=== PATIENT | female | born 1955 | race Caucasian/White ===

== ENCOUNTER → 2016-11-02 | Outpatient (CLI) | payer BC ==
--- NOTE | 2016-11-05 08:33 | MM ---
Reason for exam: screening (asymptomatic). Last mammogram was performed 1 year and 11 months ago. History: Patient is postmenopausal. Physical Findings: A clinical breast exam by your physician is recommended on an annual basis and results should be correlated with mammographic findings. MG Screening Mammo w CAD Bilateral CC and MLO view(s) were taken. Prior study comparison: December 01, 2014, mammogram, performed at [facility]. April 10, 2013, mammogram, performed at [facility]. There are scattered fibroglandular densities. Finding: There area few typically benign round, diffuse calcifications in both breasts. Asymmetric breast tissue in the right outer breast, stable. ASSESSMENT: Benign, BI-RAD 2 RECOMMENDATION: Routine screening mammogram of both breasts in 1 year.
== END | disposition home or self-care (01) ==
LOC: RADMAMWWP 11:12
PROVIDERS: ATTEND Obstetrics & Gynecology
DX: Z12.31 Encounter for screening mammogram for malignant neoplasm of breast (principal)

== ENCOUNTER → 2018-01-01 | Outpatient (CLI) | payer BC ==
--- NOTE | 2018-01-02 10:12 | MM ---
Reason for exam: screening (asymptomatic). Last mammogram was performed 1 year and 2 months ago. History: Patient is postmenopausal. Physical Findings: A clinical breast exam by your physician is recommended on an annual basis and results should be correlated with mammographic findings. MG Screening Mammo w CAD Bilateral CC and MLO view(s) were taken. Prior study comparison: November 02, 2016, bilateral MG screening mammo w CAD. December 01, 2014, mammogram, performed at [facility]. There are scattered fibroglandular densities. Focal asymmetry inner upper right breast 4.2cm from nipple. ASSESSMENT: Incomplete: need additional imaging evaluation, BI-RAD 0 RECOMMENDATION: Special view mammogram of the right breast. If lesion persists on supplemental views, image directed ultrasound is recommended. [facility] will attempt to contact patient to return for supplemental views and ultrasound if indicated.
== END | disposition home or self-care (01) ==
LOC: RADMAMWWP 11:41
PROVIDERS: ATTEND Obstetrics & Gynecology
DX: Z12.31 Encounter for screening mammogram for malignant neoplasm of breast (principal)
CPT/HCPCS: 77067

== ENCOUNTER → 2018-01-20 | Outpatient (CLI) | payer BC ==
--- NOTE | 2018-01-21 08:42 | MM ---
Reason for exam: additional evaluation requested from abnormal screening. Last mammogram was performed 1 month ago. History: Patient is postmenopausal. Physical Findings: Nurse did not find any significant physical abnormalities on exam. MG Work Up Mamm w CAD RT ML, spot compression CC, spot compression ML, and spot compression CCRM view(s) were taken of the right breast. Prior study comparison: January 01, 2018, bilateral MG screening mammo w CAD. November 02, 2016, bilateral MG screening mammo w CAD. December 01, 2014, mammogram, performed at [facility]. There are scattered fibroglandular densities. The questioned focal asymmetry does not persist. These results were verbally communicated with the patient and result sheet given to the patient on 01/20/18. ASSESSMENT: Negative, BI-RAD 1 RECOMMENDATION: Return to routine screening mammogram schedule for both breasts.
== END | disposition home or self-care (01) ==
LOC: RADMAMWWP 14:28
PROVIDERS: ATTEND Obstetrics & Gynecology
DX: R92.8 Other abnormal and inconclusive findings on diagnostic imaging of breast (principal)
CPT/HCPCS: 77065

== ENCOUNTER → 2019-04-10 | Outpatient (CLI) | payer BC ==
--- NOTE | 2019-04-14 10:01 | MM ---
Reason for exam: screening (asymptomatic). Last mammogram was performed 1 year and 3 months ago. History: Patient is postmenopausal. Physical Findings: A clinical breast exam by your physician is recommended on an annual basis and results should be correlated with mammographic findings. MG Screening Mammo w CAD Bilateral CC and MLO view(s) were taken. Prior study comparison: January 20, 2018, right breast MG work up mamm w CAD RT. January 01, 2018, bilateral MG screening mammo w CAD. The breast tissue is heterogeneously dense. This may lower the sensitivity of mammography. There is no discrete abnormality. No significant changes when compared with prior studies. ASSESSMENT: Negative, BI-RAD 1 RECOMMENDATION: Routine screening mammogram of both breasts in 1 year.
== END | disposition home or self-care (01) ==
LOC: RADMAMWWP 13:27
PROVIDERS: ATTEND Obstetrics & Gynecology
DX: Z12.31 Encounter for screening mammogram for malignant neoplasm of breast (principal)
CPT/HCPCS: 77067

== ENCOUNTER → 2020-04-11 | Outpatient (CLI) | payer MEDICARE ==
--- NOTE | 2020-04-12 11:42 | MM ---
Reason for exam: screening (asymptomatic). Last mammogram was performed 1 year ago. History: Patient is postmenopausal. Physical Findings: A clinical breast exam by your physician is recommended on an annual basis and results should be correlated with mammographic findings. MG 3D Screening Mammo W/Cad Bilateral CC and MLO view(s) were taken. Prior study comparison: April 10, 2019, bilateral MG screening mammo w CAD. January 20, 2018, right breast MG work up mamm w CAD RT. There are scattered fibroglandular densities. There are benign appearing round calcifications in the right breast. There is no discrete abnormality. ASSESSMENT: Benign, BI-RAD 2 RECOMMENDATION: Routine screening mammogram of both breasts in 1 year.
== END | disposition home or self-care (01) ==
LOC: RADMAMWWP 09:32
PROVIDERS: ATTEND Family Medicine
DX: Z12.31 Encounter for screening mammogram for malignant neoplasm of breast (principal)
CPT/HCPCS: 77063; 77067

== ENCOUNTER → 2021-07-24 | Outpatient (CLI) | payer MEDICARE ==
--- NOTE | 2021-07-25 13:14 | MM ---
Reason for exam: screening (asymptomatic). Last mammogram was performed 1 year and 3 months ago. History: Patient is postmenopausal. Physical Findings: A clinical breast exam by your physician is recommended on an annual basis and results should be correlated with mammographic findings. MG 3D Screening Mammo W/Cad Bilateral CC and MLO view(s) were taken. Prior study comparison: April 11, 2020, bilateral MG 3d screening mammo w/cad. April 10, 2019, bilateral MG screening mammo w CAD. There are scattered fibroglandular densities. No significant changes when compared with prior studies. ASSESSMENT: Benign, BI-RAD 2 RECOMMENDATION: Routine screening mammogram of both breasts in 1 year.
== END | disposition home or self-care (01) ==
LOC: RADMAMWWP 15:25
PROVIDERS: ATTEND Family Medicine
DX: Z12.31 Encounter for screening mammogram for malignant neoplasm of breast (principal); Z78.0 Asymptomatic menopausal state
CPT/HCPCS: 77063; 77067

== ENCOUNTER → 2022-10-03 | Outpatient (CLI) | payer MEDICARE ==
--- NOTE | 2022-10-04 10:59 | MM ---
Reason for Exam: Screening (asymptomatic). Last mammogram was performed 1 year(s) and 2 month(s) ago. Patient History: Menarche at age 12. First Full-Term at age 17. Postmenopausal. Risk Values: Maci 5 year model risk: 1.2%. NCI Lifetime model risk: 4.2%. Prior Study Comparison: 04/10/2019 Bilateral Screening Mammogram, [facility]. 04/11/2020 Bilateral Screening Mammogram, [facility]. 07/24/2021 Bilateral Screening Mammogram, [facility]. Tissue Density: There are scattered fibroglandular densities. Findings: Analyzed By CAD. There is no suspicious group of microcalcifications or new suspicious mass in either breast. Overall Assessment: Negative, BI-RAD 1 Management: Screening Mammogram of both breasts in 1 year. A clinical breast exam by your physician is recommended on an annual basis and results should be correlated with mammographic findings. [facility] will attempt to contact patient to return for supplemental views and ultrasound if indicated. Electronically signed and approved by: Edd Zayas DO
== END | disposition home or self-care (01) ==
LOC: RADMAMWWP 11:13
PROVIDERS: ATTEND Family Medicine
DX: Z12.31 Encounter for screening mammogram for malignant neoplasm of breast (principal); Z78.0 Asymptomatic menopausal state
CPT/HCPCS: 77063; 77067

== ENCOUNTER 2022-11-01 07:58 | Day surgery (SDC) | payer MEDICARE ==
[2022-10-26 11:43] VITALS: BMI 32.9
--- NOTE | 2022-11-01 07:07 | P.GSHP ---
History of Present Illness H&P Date: 11/01/22 CHIEF COMPLAINT: Colon screen HISTORY OF PRESENT ILLNESS: The patient is a 66-year-old female who presents for colon screen. Lower endoscopy was offered for further evaluation and management. PAST MEDICAL HISTORY: Please see list. PAST SURGICAL HISTORY: Please see list. MEDICATIONS: Please see list. ALLERGIES: Please see list. SOCIAL HISTORY: No illicit drug use FAMILY HISTORY: No reports of Crohn disease or ulcerative colitis. REVIEW OF ORGAN SYSTEMS: CONSTITUTIONAL: No reports of fevers or chills. PHYSICAL EXAM: VITAL SIGNS: Stable GENERAL: Well-developed pleasant in no acute distress. HEENT: No scleral icterus. Extraocular movements grossly intact. Moist buccal mucosa. NECK: Supple without lymphadenopathy. CHEST: Unlabored respirations. Equal bilateral excursions. CARDIOVASCULAR: Regular rate and rhythm. Distal 2+ pulses. ABDOMEN: Soft, nontender, nondistended. MUSCULOSKELETAL: No clubbing, cyanosis, or edema. ASSESSMENT: 1. Colon screen. PLAN: 1. Recommend proceeding with a lower endoscopy Past Medical History Past Medical History: GERD/Reflux, Hypertension History of Any Multi-Drug Resistant Organisms: None Reported Past Surgical History: Uterine Ablation Additional Past Surgical History / Comment(s): VEIN STRIPPING Past Anesthesia/Blood Transfusion Reactions: No Reported Reaction Past Psychological History: No Psychological Hx Reported Smoking Status: Never smoker Past Alcohol Use History: Occasional Past Drug Use History: None Reported Medications and Allergies Home Medications Medication Instructions Recorded Confirmed Type Ascorbic Acid [Vitamin C] 1,000 mg PO DAILY 10/26/22 10/26/22 History Cholecalciferol [Vitamin D3 (25 75 mcg PO DAILY 10/26/22 10/26/22 History Mcg = 1000 Iu)] Cyanocobalamin (Vitamin B-12) 1,000 mcg PO DAILY 10/26/22 10/26/22 History [Vitamin B-12] Losartan [Cozaar] 25 mg PO HS 10/26/22 10/26/22 History Omeprazole 20 mg PO DAILY 10/26/22 10/26/22 History hydroCHLOROthiazide 25 mg PO DAILY 10/26/22 10/26/22 History Allergies Allergy/AdvReac Type Severity Reaction Status Date / Time nitrofurantoin Allergy Rash/Hives Verified 10/26/22 11:27 [From Macrobid]
[2022-11-01] MEDS ORDERED: LACTATED RINGERS 1,000 ML IV ONE (08:38)
[2022-11-01] MEDS ORDERED: LACTATED RINGERS 1,000 ML IV SCH (08:39)
[2022-11-01 08:51] VITALS: TEMP 96.8
[2022-11-01] MEDS ORDERED: PROPOFOL 10 MG/ML 20 ML VIAL IV ONE (10:01)
[2022-11-01 10:49] VITALS: BP 142/84; PULSE 61; RESP 16
--- NOTE | 2022-11-01 11:20 | P.PCN ---
Date of Procedure: 11/01/22 Description of Procedure: PREOPERATIVE DIAGNOSIS: Personal history of colon polyps Family history malignant colon polyps Colonoscopy screening POSTOPERATIVE DIAGNOSIS: Personal history of colon polyps Family history malignant colon polyps Colonoscopy screening Sigmoid diverticulosis Tubular adenoma hepatic flexure Tubular adenoma transverse colon Internal hemorrhoids, grade 4 OPERATION: Colonoscopy to the ascending colon Colonoscopy with hot snare polypectomy SURGEON: Kiah Salazar MD. ANESTHESIA: MAC. INDICATIONS: The patient is an 66-year-old female who presents family history of malignant colon polyps and personal history of colon polyps. Last colonoscopy 5 years. Benefits and risks were described and informed consent was obtained. DESCRIPTION OF PROCEDURE: The patient had undergone Sutab prep. The patient had been brought into the operating room and laid in the left lateral decubitus position. After adequate intravenous sedation, the rectum was examined with 2% lidocaine jelly. External hemorrhoids were encountered. The rectal tone was within normal limits. No lesions were palpated in the rectal vault. An Olympus colonoscope was advanced highly redundant sigmoid colon to the descending colon. The prep was excellent. Sigmoid diverticulosis was encountered. Colonic polyps were found and removed. No evidence of focal colitis was found. Retroflexion of the scope demonstrated grade 4 internal hemorrhoids without active bleeding or inflammation. The colon was desufflated. The patient had tolerated the procedure well. Withdrawal time was over 6 minutes. FINDINGS: Aronchick preparation quality scale 1 (1-5) Internal hemorrhoids, grade 4 External hemorrhoids, grade 4. No arteriovenous malformations. Highly redundant sigmoid colon for an abdominal pressure Sigmoid diverticulosis Removal of 2 polyps: - Snare polypectomy transverse colon, 5 mm tubulovillous adenoma - Snare polypectomy ascending colon, 8 mm flat villous adenoma No focal colitis. RECOMMENDATIONS: Repeat colonoscopy in 3 years, 2025 Plan - Discharge Summary Discharge Rx Participant: No New Discharge Prescriptions: Continue Ascorbic Acid [Vitamin C] 1,000 mg PO DAILY hydroCHLOROthiazide 25 mg PO DAILY Cyanocobalamin (Vitamin B-12) [Vitamin B-12] 1,000 mcg PO DAILY Omeprazole 20 mg PO DAILY Cholecalciferol [Vitamin D3 (25 Mcg = 1000 Iu)] 75 mcg PO DAILY Losartan [Cozaar] 25 mg PO HS Discharge Medication List Ascorbic Acid [Vitamin C] 1,000 mg PO DAILY 10/26/22 [History] Cholecalciferol [Vitamin D3 (25 Mcg = 1000 Iu)] 75 mcg PO DAILY 10/26/22 [History] Cyanocobalamin (Vitamin B-12) [Vitamin B-12] 1,000 mcg PO DAILY 10/26/22 [History] Losartan [Cozaar] 25 mg PO HS 10/26/22 [History] Omeprazole 20 mg PO DAILY 10/26/22 [History] hydroCHLOROthiazide 25 mg PO DAILY 10/26/22 [History] Follow up Appointment(s)/Referral(s): Kiah Salazar MD [STAFF PHYSICIAN] - As Needed Patient Instructions/Handouts: *Surgery [facility] - (Anesthesia) Discharge Instructions Outpatient Surgery, Hemorrhoids (DC), Colorectal Polyps (GEN), Colonoscopy (DC) Activity/Diet/Wound Care/Special Instructions: Repeat colonoscopy in 3 years, 2025.
== END 2022-11-01 11:21 | disposition home or self-care (01) ==
LOC: ORWHC2ENDO 07:58
PROVIDERS: ATTEND Surgery Plastic and Reconstructive Surgery
DX: Z12.11 Encounter for screening for malignant neoplasm of colon (principal); D12.3 Benign neoplasm of transverse colon; K57.30 Diverticulosis of large intestine without perforation or abscess without bleeding; K64.3 Fourth degree hemorrhoids; K21.9 Gastro-esophageal reflux disease without esophagitis; I10 Essential (primary) hypertension; Z86.010 Personal history of colon polyps; Z80.0 Family history of malignant neoplasm of digestive organs; Z79.899 Other long term (current) drug therapy; Z86.59 Personal history of other mental and behavioral disorders; Z88.1 Allergy status to other antibiotic agents
CPT/HCPCS: 88305; 45385; J2704

== ENCOUNTER → 2023-12-30 | Outpatient (CLI) | payer MEDICARE ==
--- NOTE | 2023-12-31 18:22 | MM ---
Reason for Exam: Screening (asymptomatic). Last mammogram was performed 1 year(s) and 3 month(s) ago. Patient History: Menarche at age 12. First Full-Term at age 17. Postmenopausal. Risk Values: Maci 5 year model risk: 1.2%. NCI Lifetime model risk: 3.9%. Prior Study Comparison: 04/11/2020 Bilateral Screening Mammogram, [facility]. 07/24/2021 Bilateral Screening Mammogram, [facility]. 10/03/2022 Bilateral MG 3D screening mammo w/cad, [facility]. Tissue Density: There are scattered areas of fibroglandular density. Findings: Analyzed By CAD. There is no suspicious group of microcalcifications or new suspicious mass in either breast. Overall Assessment: Negative, BI-RAD 1 Management: Screening Mammogram of both breasts in 1 year. . Patient should continue monthly self-breast exams. A clinical breast exam by your physician is recommended on an annual basis. This exam should not preclude additional follow-up of suspicious palpable abnormalities. Note on Maci scores and lifetime risk: 1. A Maci score greater than 3% is considered moderate risk. If this is the case, consider specialist referral to assess eligibility for a risk reducing agent. 2. If overall lifetime risk for the development of breast cancer is 20% or higher, the patient may qualify for future screening with alternating mammogram and breast MRI. Electronically signed and approved by: Francisco Javier Zarco M.D. Radiologist
== END | disposition home or self-care (01) ==
LOC: RADMAMWWP 13:52
PROVIDERS: ATTEND Family Medicine
DX: Z12.31 Encounter for screening mammogram for malignant neoplasm of breast (principal); Z78.0 Asymptomatic menopausal state
CPT/HCPCS: 77063; 77067

== ENCOUNTER 2024-09-17 14:38 | Inpatient (IN) | payer MEDICARE ==
[2024-09-17 15:59] LABS: Influenza A Not Detected (Not Detectd); Influenza B Not Detected (Not Detectd); RSV Not Detected (Not Detectd)
[2024-09-17] MEDS: LACTATED RINGERS 1,000 ML IV ONE ×2 (18:30→23:26)
[2024-09-17 18:38] LABS: Basophils % (A) 0 %; Eosinophils # (A) 0.2 k/uL (0-0.7); Eosinophils % (A) 1 %; HCT 43.8 % (34.0-46.0); HGB 14.6 gm/dL (11.4-16.0); Lymphocytes # (A) 1.7 k/uL (1.0-4.8); Lymphocytes % (A) 12 %; MCH 31.1 pg (25.0-35.0); MCHC 33.3 g/dL (31.0-37.0); MCV 93.5 fL (80.0-100.0); Mean Platelet Volume 6.4; Monocytes # (A) 0.7 k/uL (0-1.0); Monocytes % (A) 5 %; Neutrophils # (A) 11.3 k/uL (1.3-7.7); Neutrophils % (A) 81 %; Platelet Count 446 k/uL (150-450); RBC 4.68 m/uL (3.80-5.40)
[2024-09-17 19:42] LABS: Appearance,Urine Clear (Clear); Bilirubin,Urine Negative (Negative); Blood,Urine Negative (Negative); Color,Urine Colorless; Glucose,Urine (UA) Negative (Negative); Ketones,Urine 1+ (Negative); Leukocyte Esterase,Urine Negative (Negative); Nitrite,Urine Negative (Negative); Protein,Urine Negative (Negative); Specific Gravity,Urine 1.005 (1.001-1.035); Urobilinogen,Urine <2.0 mg/dL (<2.0)
[2024-09-17 20:25] LABS: ALT 82 U/L (4-34); AST 45 U/L (14-36); African American GFR (CKD) >90 (>60 ml/min/1.73 sqM); Albumin 3.8 g/dL (3.5-5.0); Alkaline Phosphatase 382 U/L (38-126); Anion Gap 11 mmol/L; Blood Urea Nitrogen 9 mg/dL (7-17); Calcium 8.8 mg/dL (8.4-10.2); Carbon Dioxide 30 mmol/L (22-30); Chloride 86 mmol/L (98-107); Glucose 117 mg/dL (74-99); Lipase 120 U/L (23-300); Non-African American GFR(CKD) >90 (>60 ml/min/1.73 sqM); Potassium 3.1 mmol/L (3.5-5.1); Sodium 127 mmol/L (137-145); Total Bilirubin 0.8 mg/dL (0.2-1.3); Total Protein 7.1 g/dL (6.3-8.2)
--- NOTE | 2024-09-17 21:39 | CT ---
EXAMINATION TYPE: CT abdomen pelvis w con DATE OF EXAM: 09/17/2024 COMPARISON: NONE CLINICAL INDICATION: Female, 68 years old with history of abdominal pain, c/o N/V/D and fever ongoing since Saturday., TECHNIQUE: CT scan of the abdomen and pelvis is performed with IV Contrast, patient injected with 100 ml mL of I sovue 300., (none if empty) Oral contrast used: without Oral Contrast (none if empty) CT DLP: 1302.2 mGycm, Automated exposure control for dose reduction was used. FINDINGS: LUNG BASES: Gyfn-[id number]-[id number] bibasilar linear scarring and/or atelectasis. LIVER/GB: Liver is heterogeneously hypodense suggesting diffuse fatty infiltrative hepatocellular dis ease. Gallbladder is dilated with distended margins and has edematous wall thickening and possible co ntained anterior perforation axial image 36. No biliary dilatation. PANCREAS: No significant abnormality is seen. SPLEEN: No significant abnormality is seen. ADRENALS: No significant abnormality is seen. KIDNEYS: No significant abnormality is seen. BOWEL: No suspicious dilatation. Normal-appearing appendix seen. UTERUS/ADNEXA: Anteverted uterus. LYMPH NODES: No greater than 1cm abdominal or pelvic lymph nodes are appreciated. OSSEOUS STRUCTURES: Slight scoliotic curvature or more likely positioning. OTHER: No significant additional abnormality is seen. IMPRESSION: CT findings are strongly suspicious for severe acute cholecystitis. Advise surgical evalu ation. [facility] Pign Welch, , 09/17/2024 9:37 PM
--- NOTE | 2024-09-17 22:45 | ED ---
General Adult HPI - General Chief complaint: Nausea/Vomiting/Diarrhea Stated complaint: NVD,fever Time Seen by Provider: 09/17/24 14:55 Source: patient Mode of arrival: ambulatory Limitations: no limitations - History of Present Illness Initial comments: 68-year-old female who presents emergency department with right upper quadrant pain. States that has been going on for the past week. She has had fevers ongoing since Saturday. Also reports to nausea, vomiting and diarrhea. She was seen in her primary care clinic. Laboratory studies were completed. She was told that her white blood cell count was high. They did repeat this test 2 days in a row. White count continue to be high and she was told that she was dehydrated. An ultrasound was ordered however patient was awaiting callback for her study and still has not heard when this test will be performed. She continued to feel nauseated and therefore brought her self into the emergency department. She denies chest pain or difficulty breathing. States that the stools have not been black or bloody. She took a dose of Tylenol this morning at 8 AM. No other alleviating, precipitating or modifying factors - Related Data Home Medications Medication Instructions Recorded Confirmed Ascorbic Acid [Vitamin C] 1,000 mg PO DAILY 10/26/22 09/18/24 Cholecalciferol [Vitamin D3 (25 75 mcg PO DAILY 10/26/22 09/18/24 Mcg = 1000 Iu)] Cyanocobalamin (Vitamin B-12) 1,000 mcg PO DAILY 10/26/22 09/18/24 [Vitamin B-12] Losartan [Cozaar] 25 mg PO HS 10/26/22 09/18/24 Omeprazole 20 mg PO DAILY 10/26/22 09/18/24 hydroCHLOROthiazide 25 mg PO DAILY 10/26/22 09/18/24 Propylene Glycol/Peg 400 [Systane 1 - 2 drop BOTH EYES DIRECTED 09/18/24 09/18/24 Ultra 0.4-0.3% Eye Drp] PRN Allergies Allergy/AdvReac Type Severity Reaction Status Date / Time nitrofurantoin AdvReac flu Verified 09/18/24 10:04 [From Macrobid] symptoms Review of Systems ROS Statement: Those systems with pertinent positive or pertinent negative responses have been documented in the HPI. ROS Other: All systems not noted in ROS Statement are negative. Past Medical History Past Medical History: Hypertension History of Any Multi-Drug Resistant Organisms: None Reported Past Surgical History: Orthopedic Surgery Past Psychological History: No Psychological Hx Reported Smoking Status: Never smoker Past Alcohol Use History: Daily Past Drug Use History: None Reported General Exam Limitations: no limitations General appearance: alert, in no apparent distress Head exam: Present: atraumatic, normocephalic, normal inspection Eye exam: Present: normal appearance, PERRL, EOMI. Absent: scleral icterus, conjunctival injection, periorbital swelling ENT exam: Present: normal exam, mucous membranes moist Neck exam: Present: normal inspection. Absent: tenderness, meningismus, lymphadenopathy Respiratory exam: Present: normal lung sounds bilaterally. Absent: respiratory distress, wheezes, rales, rhonchi, stridor Cardiovascular Exam: Present: regular rate, normal rhythm, normal heart sounds. Absent: systolic murmur, diastolic murmur, rubs, gallop, clicks GI/Abdominal exam: Present: soft, tenderness (Right upper quadrant), normal bowel sounds. Absent: distended, guarding, rebound, rigid Extremities exam: Present: normal inspection, full ROM, normal capillary refill. Absent: tenderness, pedal edema, joint swelling, calf tenderness Back exam: Present: normal inspection Neurological exam: Present: alert, oriented X3, CN II-XII intact Psychiatric exam: Present: normal affect, normal mood Skin exam: Present: warm, dry, intact, normal color. Absent: rash Course Vital Signs 09/17/24 09/17/24 09/17/24 14:52 19:04 23:32 Temperature 98.2 F 98.1 F 98.3 F Pulse Rate 94 75 77 Respiratory 18 20 16 Rate Blood Pressure 162/95 147/99 167/74 O2 Sat by Pulse 94 L 99 96 Oximetry Medical Decision Making - Medical Decision Making Was pt. sent in by a medical professional or institution (, PA, MOTORCYCLE DELIVERY DRIVER, urgent care, hospital, or alf...) When possible be specific @ -No Did you speak to anyone other than the patient for history (EMS, parent, family, police, friend...)? What history was obtained from this source @ -No Did you review nursing and triage notes (agree or disagree)? Why? @ -I reviewed and agree with nursing and triage notes Were old charts reviewed (outside hosp., previous admission, EMS record, old EKG, old radiological studies, urgent care reports/EKG's, alf records)? Report findings @ -No old charts were reviewed Differential Diagnosis (chest pain, altered mental status, abdominal pain women, abdominal pain men, vaginal bleeding, weakness, fever, dyspnea, syncope, headache, dizziness, GI bleed, back pain, seizure, CVA, palpatations, mental health, musculoskeletal)? @ -Differential Abdominal Pain Women: Appendicitis, Cholecystitis, diverticulosis, ischemic bowel, pancreatitis, hepatitis, UTI, gastroenteritis, AAA, incarcerated hernia, bowel obstruction, constipation, inflammatory bowel, hepatitis, peptic ulcer disease, splenic infarction, perforated viscus, vulvitis, ovarian torsion, PID, kidney stone, placenta abruption, this is not meant to be an all-inclusive list EKG interpreted by me (3pts min.). @ -Not done X-rays interpreted by me (1pt min.). @ -None done CT interpreted by me (1pt min.). @ -Yes which demonstrates acute cholecystitis U/S interpreted by me (1pt. min.). @ -None done What testing was considered but not performed or refused? (CT, X-rays, U/S, labs)? Why? @ -None What meds were considered but not given or refused? Why? @ -None Did you discuss the management of the patient with other professionals (professionals i.e. , PA, MOTORCYCLE DELIVERY DRIVER, lab, RT, psych nurse, director of social media marketing, taping machine operator, teacher, fundraising officer, machine adjuster leader case trim)? Give summary @ -Spoke with Dr. Mejias. On-call surgeon is Dr. Castellano however the patient's daughter is adamant that her mother will see any surgeon besides Dr. Castellano for care Was smoking cessation discussed for >3mins.? @ -No Was critical care preformed (if so, how long)? @ -No Were there social determinants of health that impacted care today? How? (Homelessness, low income, unemployed, alcoholism, drug addiction, transportation, low edu. Level, literacy, decrease access to med. care, penitentiary, rehab)? @ -No Was there de-escalation of care discussed even if they declined (Discuss DNR or withdrawal of care, Hospice)? DNR status @ -No What co-morbidities impacted this encounter? (DM, HTN, Smoking, COPD, CAD, Cancer, CVA, ARF, Chemo, Hep., AIDS, mental health diagnosis, sleep apnea, morbid obesity)? @ -None Was patient admitted / discharged? Hospital course, mention meds given and route, prescriptions, significant lab abnormalities, going to OR and other pertinent info. @ -Upon arrival patient seen and evaluated in bed 302. Thorough history and physical exam was performed. IV access was established. Laboratory studies are conducted. Patient does have elevation in her alk phos and AST, ALT. Patient is sent for CT which demonstrates acute cholecystitis. Source of infection identified at [address] was read by radiology and identifies an acute cholecystitis. Blood cultures obtained. Patient is initiated on Zosyn. Randy vaughn is requesting any surgeon other than Dr. Castellano. Dr. Mejias is on secondary service. I did contact him and he was agreeable to the consult. He requests medicine admission. I did speak with Dr. Cobb for the admission. Dr. Mejias will be placed on consult. Patient admitted to the floor in stable condition acute epigastric abdominal pain, Undiagnosed new problem with uncertain prognosis? @ -No Drug Therapy requiring intensive monitoring for toxicity (Heparin, Nitro, Insulin, Cardizem)? @ -No Were any procedures done? @ -No Diagnosis/symptom? @ -Transaminitis, acute cholecystitis Acute, or Chronic, or Acute on Chronic? @ -Acute Uncomplicated (without systemic symptoms) or Complicated (systemic symptoms)? @ -Uncomplicated Side effects of treatment? @ -No Exacerbation, Progression, or Severe Exacerbation? @ -No Poses a threat to life or bodily function? How? (Chest pain, [place], [place], pneumonia, PE, COPD, DKA, ARF, appy, cholecystitis, CVA, Diverticulitis, Homicidal, Suicidal, threat to staff... and all critical care pts) @ -No - Lab Data Result diagrams: 09/20/24 06:14 09/20/24 06:08 Lab Results 09/17/24 09/17/24 09/17/24 Range/Units 14:59 18:31 18:41 WBC 14.0 H (3.8-10.6) k/uL RBC 4.68 (3.80-5.40) m/uL Hgb 14.6 (11.4-16.0) gm/dL Hct 43.8 (34.0-46.0) % MCV 93.5 (80.0-100.0) fL MCH 31.1 (25.0-35.0) pg MCHC 33.3 (31.0-37.0) g/dL RDW 12.0 (11.5-15.5) % Plt Count 446 (150-450) k/uL MPV 6.4 Neutrophils % 81 % Lymphocytes % 12 % Monocytes % 5 % Eosinophils % 1 % Basophils % 0 % Neutrophils # 11.3 H (1.3-7.7) k/uL Lymphocytes # 1.7 (1.0-4.8) k/uL Monocytes # 0.7 (0-1.0) k/uL Eosinophils # 0.2 (0-0.7) k/uL Basophils # 0.0 (0-0.2) k/uL Sodium (137-145) mmol/L Potassium (3.5-5.1) mmol/L Chloride (98-107) mmol/L Carbon Dioxide (22-30) mmol/L Anion Gap mmol/L BUN (7-17) mg/dL Creatinine (0.52-1.04) mg/dL Est GFR (CKD-EPI)AfAm (>60 ml/min/1.73 sqM) Est GFR (CKD-EPI)NonAf (>60 ml/min/1.73 sqM) Glucose (74-99) mg/dL Plasma Lactic Acid Camacho (0.7-2.0) mmol/L Calcium (8.4-10.2) mg/dL Total Bilirubin (0.2-1.3) mg/dL AST (14-36) U/L ALT (4-34) U/L Alkaline Phosphatase (38-126) U/L Total Protein (6.3-8.2) g/dL Albumin (3.5-5.0) g/dL Lipase (23-300) U/L Urine Color Colorless Urine Appearance Clear (Clear) Urine pH 6.0 (5.0-8.0) Ur Specific Cutler 1.005 (1.001-1.035) Urine Protein Negative (Negative) Urine Glucose (UA) Negative (Negative) Urine Ketones 1+ H (Negative) Urine Blood Negative (Negative) Urine Nitrite Negative (Negative) Urine Bilirubin Negative (Negative) Urine Urobilinogen <2.0 (<2.0) mg/dL Ur Leukocyte Esterase Negative (Negative) Influenza Type A (PCR) Not Detected (Not Detectd) Influenza Type B (PCR) Not Detected (Not Detectd) RSV (PCR) Not Detected (Not Detectd) SARS-CoV-2 (PCR) Not Detected (Not Detectd) 09/17/24 09/17/24 Range/Units 19:25 19:25 WBC (3.8-10.6) k/uL RBC (3.80-5.40) m/uL Hgb (11.4-16.0) gm/dL Hct (34.0-46.0) % MCV (80.0-100.0) fL MCH (25.0-35.0) pg MCHC (31.0-37.0) g/dL RDW (11.5-15.5) % Plt Count (150-450) k/uL MPV Neutrophils % % Lymphocytes % % Monocytes % % Eosinophils % % Basophils % % Neutrophils # (1.3-7.7) k/uL Lymphocytes # (1.0-4.8) k/uL Monocytes # (0-1.0) k/uL Eosinophils # (0-0.7) k/uL Basophils # (0-0.2) k/uL Sodium 127 L (137-145) mmol/L Potassium 3.1 L (3.5-5.1) mmol/L Chloride 86 L (98-107) mmol/L Carbon Dioxide 30 (22-30) mmol/L Anion Gap 11 mmol/L BUN 9 (7-17) mg/dL Creatinine 0.53 (0.52-1.04) mg/dL Est GFR (CKD-EPI)AfAm >90 (>60 ml/min/1.73 sqM) Est GFR (CKD-EPI)NonAf >90 (>60 ml/min/1.73 sqM) Glucose 117 H (74-99) mg/dL Plasma Lactic Acid Camacho 2.0 (0.7-2.0) mmol/L Calcium 8.8 (8.4-10.2) mg/dL Total Bilirubin 0.8 (0.2-1.3) mg/dL AST 45 H (14-36) U/L ALT 82 H (4-34) U/L Alkaline Phosphatase 382 H (38-126) U/L Total Protein 7.1 (6.3-8.2) g/dL Albumin 3.8 (3.5-5.0) g/dL Lipase 120 (23-300) U/L Urine Color Urine Appearance (Clear) Urine pH (5.0-8.0) Ur Specific Cutler (1.001-1.035) Urine Protein (Negative) Urine Glucose (UA) (Negative) Urine Ketones (Negative) Urine Blood (Negative) Urine Nitrite (Negative) Urine Bilirubin (Negative) Urine Urobilinogen (<2.0) mg/dL Ur Leukocyte Esterase (Negative) Influenza Type A (PCR) (Not Detectd) Influenza Type B (PCR) (Not Detectd) RSV (PCR) (Not Detectd) SARS-CoV-2 (PCR) (Not Detectd) Disposition Clinical Impression: RUQ pain, Acute cholecystitis, Leukocytosis Disposition: ADMITTED IP TO THIS [facility] Condition: Stable Is patient prescribed a controlled substance at d/c from ED?: No Time of Disposition: 22:48 Decision to Admit Reason: Admit from EC Decision Date: 09/17/24 Decision Time: 22:48
[2024-09-17] MEDS ORDERED: NALOXONE 0.4 MG/ML 1 ML VIAL IV PRN (22:49)
[2024-09-18] MEDS: PIPERACILLIN-TAZOBACTAM 3.375 GM in SODIUM CHLORIDE 0.9% 100 ML IVPB SCH (00:28)
[2024-09-18] MEDS: POTASSIUM CHLORIDE 10 MEQ in WATER FOR INJECTION 1 100ML.BAG IVPB SCH (00:28)
[2024-09-18] MEDS: ACETAMINOPHEN TAB 325 MG TAB PO PRN (00:36)
[2024-09-18] MEDS: SODIUM CHLORIDE 0.9% 1,000 ML IV SCH (01:29)
[2024-09-18] MEDS: POTASSIUM CHLORIDE 20 MEQ in WATER FOR INJECTION 1 100ML.BAG IVPB ONE (01:29)
[2024-09-18] MEDS: POTASSIUM CHLORIDE 20 MEQ in WATER FOR INJECTION 1 100ML.BAG IVPB STA (02:15)
[2024-09-18 06:56] LABS: African American GFR (CKD) >90 (>60 ml/min/1.73 sqM); Anion Gap 9 mmol/L; Blood Urea Nitrogen 7 mg/dL (7-17); Calcium 8.7 mg/dL (8.4-10.2); Carbon Dioxide 32 mmol/L (22-30); Chloride 88 mmol/L (98-107); Glucose 113 mg/dL (74-99); Non-African American GFR(CKD) >90 (>60 ml/min/1.73 sqM); Potassium 3.2 mmol/L (3.5-5.1); Sodium 129 mmol/L (137-145)
[2024-09-18 07:05] LABS: Basophils % (A) 0 %; Eosinophils # (A) 0.1 k/uL (0-0.7); Eosinophils % (A) 1 %; HCT 40.4 % (34.0-46.0); Lymphocytes # (A) 1.7 k/uL (1.0-4.8); Lymphocytes % (A) 15 %; MCH 30.3 pg (25.0-35.0); MCHC 32.2 g/dL (31.0-37.0); MCV 94.3 fL (80.0-100.0); Mean Platelet Volume 6.6; Monocytes # (A) 0.7 k/uL (0-1.0); Monocytes % (A) 6 %; Neutrophils # (A) 9.1 k/uL (1.3-7.7); Neutrophils % (A) 77 %; Platelet Count 459 k/uL (150-450); RBC 4.29 m/uL (3.80-5.40); WBC 11.7 k/uL (3.8-10.6)
[2024-09-18 09:11] LABS: ALT 68 U/L (4-34); AST 42 U/L (14-36); African American GFR (CKD) >90 (>60 ml/min/1.73 sqM); Albumin 3.3 g/dL (3.5-5.0); Albumin/Globulin Ratio 1.2; Alkaline Phosphatase 313 U/L (38-126); Anion Gap 8 mmol/L; Blood Urea Nitrogen 7 mg/dL (7-17); Calcium 8.4 mg/dL (8.4-10.2); Carbon Dioxide 30 mmol/L (22-30); Chloride 91 mmol/L (98-107); Globulin 2.8 g/dL; Glucose 126 mg/dL (74-99); Non-African American GFR(CKD) >90 (>60 ml/min/1.73 sqM); Potassium 3.2 mmol/L (3.5-5.1); Sodium 129 mmol/L (137-145); Total Bilirubin 0.8 mg/dL (0.2-1.3); Total Protein 6.1 g/dL (6.3-8.2)
[2024-09-18] MEDS: POTASSIUM CHLORIDE ER 20 MEQ TAB.ER PO STA (10:05)
--- NOTE | 2024-09-18 15:29 | P.GSCN ---
History of Present Illness Consult date: 09/18/24 History of present illness: CHIEF COMPLAINT: Nausea and vomiting HISTORY OF PRESENT ILLNESS: This is a 68-year-old female who presented to the hospital with complaints of nausea and vomiting with right upper quadrant abdominal pain. Patient reports she has had intermittent right upper quadrant pain for the last year. The pain had worsened over the last week. She was having nausea and vomiting Saturday and then on Saturday she started having diarrhea and fevers. This contributed all the way until Saturday. She will reported a temp of about 100.3 at home she has been alternating between Tylenol and Motrin. She had been seen at the urgent care center and they had ordered her abdominal ultrasound with results were still pending. Due to her having fever she came into the ER for further evaluation. Patient also had evidence of leukocytosis at the urgent care. White count was 14 on admission she did have mildly elevated LFTs. CT scan had reported severe acute cholecystitis. She has been started on antibiotics and surgical consult was requested. She denies any prior abdominal surgeries. Cardiac history includes hypertension. Denies being on any blood thinners. Denies any prior history of PR or coronary artery disease. PAST MEDICAL HISTORY: See below PAST SURGICAL HISTORY: See below MEDICATIONS: See below ALLERGIES: See below SOCIAL HISTORY: No illicit drug use. REVIEW OF SYSTEMS: CONSTITUTIONAL: Denies fever or chills. HEENT: Denies blurred vision, vision changes, or eye pain. Denies hemoptysis CARDIOVASCULAR: Denies chest pain or pressure. RESPIRATORY: No shortness of breath. GASTROINTESTINAL: See HPI for pertinent findings HEMATOLOGIC: Denies bleeding disorders. GENITOURINARY: Denies any blood in urine or increased urinary frequency. SKIN: Denies pruitis. Denies rash. PHYSICAL EXAM: VITAL SIGNS: Reviewed GENERAL: Well-developed in no acute distress. HEENT: No sclera icterus. Extraocular movements grossly intact. Moist buccal mucosa. Head is atraumatic, normocephalic. No nasal drainage. ABDOMEN: Soft. Nondistended. mild tenderness palpation to the right upper quadrant NEUROLOGIC: Alert and oriented. Cranial nerves II through XII grossly intact. LABORATORY DATA: WBC is 14 down to 11.7 Hgb 13 platelets 459 Sodium 129 potassium 3.2 creatinine 0.58 Total bilirubin 0.8 AST 42 ALT 68 alk phos 313 Lipase 120 IMAGING: CT scan abdomen pelvis reports strongly suspicious for severe acute c holecystitis. Liver is heterogeneous hypodense suggesting diffuse fatty infiltrate hepatocellular disease. Gallbladder is dilated with distended margins and has edematous wall thickening and possible contained anterior perforation. No biliary dilatation. ASSESSMENT: 1. Acute cholecystitis 2. Hypokalemia PLAN: -Patient scheduled for robotic cholecystectomy tomorrow with Dr. Block -Clear liquid diet today -N.p.o. after midnight -Continue to replace potassium -continue antibiotics -Continue IV fluids -Continue pain management Physician Building Drafting Officer note has been reviewed by physician. Signing provider agrees with the documented findings, assessment, and plan of care. Attestation Patient seen and examined at bedside. Presented with chief complaint of abdominal pain. This has been going on and off for years, however over the past 5 days has become worse with nausea and vomiting. On workup, she is found to have concern for acute cholecystitis. I did review CT with distended margins of the gallbladder wall along with edematous wall thickening. There is concern for possible contained anterior perforation, however patient is not septic appearing. She states that after starting antibiotics she is comfortable and feeling a bit better. Plan for n.p.o. after midnight and cholecystectomy with robotic assistance tomorrow. Patient is agreeable with this plan. Kimberly Mejias DO Past Medical History Past Medical History: Hypertension History of Any Multi-Drug Resistant Organisms: None Reported Past Surgical History: Orthopedic Surgery Past Psychological History: No Psychological Hx Reported Smoking Status: Never smoker Past Drug Use History: None Reported Medications and Allergies Home Medications Medication Instructions Recorded Confirmed Type Ascorbic Acid [Vitamin C] 1,000 mg PO DAILY 10/26/22 09/18/24 History Cholecalciferol [Vitamin D3 (25 75 mcg PO DAILY 10/26/22 09/18/24 History Mcg = 1000 Iu)] Cyanocobalamin (Vitamin B-12) 1,000 mcg PO DAILY 10/26/22 09/18/24 History [Vitamin B-12] Losartan [Cozaar] 25 mg PO HS 10/26/22 09/18/24 History Omeprazole 20 mg PO DAILY 10/26/22 09/18/24 History hydroCHLOROthiazide 25 mg PO DAILY 10/26/22 09/18/24 History Propylene Glycol/Peg 400 [Systane 1 - 2 drop BOTH EYES DIRECTED 09/18/24 09/18/24 History Ultra 0.4-0.3% Eye Drp] PRN Allergies Allergy/AdvReac Type Severity Reaction Status Date / Time nitrofurantoin AdvReac flu Verified 09/18/24 10:04 [From Macrobid] symptoms Surgical - Exam Osteopathic Statement: *. No significant issues noted on an osteopathic structural exam other than those noted in the History and Physical/Consult. Vital Signs Temp Pulse Resp BP Pulse Ox 98.2 F 94 18 162/95 94 L 09/17/24 14:52 09/17/24 14:52 09/17/24 14:52 09/17/24 14:52 09/17/24 14:52 Results - Labs 09/18/24 06:00 09/18/24 08:41 Abnormal Lab Results - Last 24 Hours (Table) 09/17/24 09/17/24 09/17/24 Range/Units 18:31 18:41 19:25 WBC 14.0 H (3.8-10.6) k/uL Plt Count (150-450) k/uL Neutrophils # 11.3 H (1.3-7.7) k/uL Sodium 127 L (137-145) mmol/L Potassium 3.1 L (3.5-5.1) mmol/L Chloride 86 L (98-107) mmol/L Carbon Dioxide (22-30) mmol/L Glucose 117 H (74-99) mg/dL AST 45 H (14-36) U/L ALT 82 H (4-34) U/L Alkaline Phosphatase 382 H (38-126) U/L Total Protein (6.3-8.2) g/dL Albumin (3.5-5.0) g/dL Urine Ketones 1+ H (Negative) 09/18/24 09/18/24 09/18/24 Range/Units 06:00 06:00 08:41 WBC 11.7 H (3.8-10.6) k/uL Plt Count 459 H (150-450) k/uL Neutrophils # 9.1 H (1.3-7.7) k/uL Sodium 129 L 129 L (137-145) mmol/L Potassium 3.2 L 3.2 L (3.5-5.1) mmol/L Chloride 88 L 91 L (98-107) mmol/L Carbon Dioxide 32 H (22-30) mmol/L Glucose 113 H 126 H (74-99) mg/dL AST 42 H (14-36) U/L ALT 68 H (4-34) U/L Alkaline Phosphatase 313 H (38-126) U/L Total Protein 6.1 L (6.3-8.2) g/dL Albumin 3.3 L (3.5-5.0) g/dL Urine Ketones (Negative) Diabetes panel 09/17/24 09/18/24 09/18/24 Range/Units : 06:00 08:41 Sodium 127 L 129 L 129 L (137-145) mmol/L Potassium 3.1 L 3.2 L 3.2 L (3.5-5.1) mmol/L Chloride 86 L 88 L 91 L (98-107) mmol/L Carbon Dioxide 30 32 H 30 (22-30) mmol/L BUN 9 7 7 (7-17) mg/dL Creatinine 0.53 0.60 0.58 (0.52-1.04) mg/dL Glucose 117 H 113 H 126 H (74-99) mg/dL Calcium 8.8 8.7 8.4 (8.4-10.2) mg/dL AST 45 H 42 H (14-36) U/L ALT 82 H 68 H (4-34) U/L Alkaline Phosphatase 382 H 313 H (38-126) U/L Total Protein 7.1 6.1 L (6.3-8.2) g/dL Albumin 3.8 3.3 L (3.5-5.0) g/dL Calcium panel 09/17/24 09/18/24 09/18/24 Range/Units 06:00 08:41 Calcium 8.8 8.7 8.4 (8.4-10.2) mg/dL Albumin 3.8 3.3 L (3.5-5.0) g/dL Pituitary panel 09/17/24 09/18/24 09/18/24 Range/Units : 06:00 08:41 Sodium 127 L 129 L 129 L (137-145) mmol/L Potassium 3.1 L 3.2 L 3.2 L (3.5-5.1) mmol/L Chloride 86 L 88 L 91 L (98-107) mmol/L Carbon Dioxide 30 32 H 30 (22-30) mmol/L BUN 9 7 7 (7-17) mg/dL Creatinine 0.53 0.60 0.58 (0.52-1.04) mg/dL Glucose 117 H 113 H 126 H (74-99) mg/dL Calcium 8.8 8.7 8.4 (8.4-10.2) mg/dL Adrenal panel 09/17/24 09/18/24 09/18/24 Range/Units 19:25 06:00 08:41 Sodium 127 L 129 L 129 L (137-145) mmol/L Potassium 3.1 L 3.2 L 3.2 L (3.5-5.1) mmol/L Chloride 86 L 88 L 91 L (98-107) mmol/L Carbon Dioxide 30 32 H 30 (22-30) mmol/L BUN 9 7 7 (7-17) mg/dL Creatinine 0.53 0.60 0.58 (0.52-1.04) mg/dL Glucose 117 H 113 H 126 H (74-99) mg/dL Calcium 8.8 8.7 8.4 (8.4-10.2) mg/dL Total Bilirubin 0.8 0.8 (0.2-1.3) mg/dL AST 45 H 42 H (14-36) U/L ALT 82 H 68 H (4-34) U/L Alkaline Phosphatase 382 H 313 H (38-126) U/L Total Protein 7.1 6.1 L (6.3-8.2) g/dL Albumin 3.8 3.3 L (3.5-5.0) g/dL
--- NOTE | 2024-09-18 17:39 | P.HPIM ---
History of Present Illness H&P Date: 09/18/24 Chief Complaint: Nausea/vomiting/diarrhea 68-year-old female, history of hypertension, who presents emergency department with right upper quadrant pain. States that has been going on for the past week. She has had fevers ongoing since Saturday. Also reports to nausea, vomit ing and diarrhea. She was seen in her primary care clinic. Laboratory studies were completed. She was told that her white blood cell count was high. They did repeat this test 2 days in a row. White count continue to be high and she was told that she was dehydrated. An ultrasound was ordered however patient was awaiting callback for her study and still has not heard when this test will be performed. She continued to feel nauseated and therefore brought her self into the emergency department. She denies chest pain or difficulty breathing. States that the stools have not been black or bloody. She took a dose of Tylenol this morning at 8 AM. No other alleviating, precipitating modifying factors Review of Systems REVIEW OF SYSTEMS: CONSTITUTIONAL: No fever, no malaise, no fatigue. HEENT: No recent visual problems or hearing problems. Denied any sore throat. CARDIOVASCULAR: No chest pain, orthopnea, PND, no palpitations, no syncope. PULMONARY: No shortness of breath, no cough, no hemoptysis. GASTROINTESTINAL: No diarrhea, no nausea, no vomiting, no abdominal pain. NEUROLOGICAL: No headaches, no weakness, no numbness. HEMATOLOGICAL: Denies any bleeding or petechiae. GENITOURINARY: Denies any burning micturition, frequency, or urgency. MUSCULOSKELETAL/RHEUMATOLOGICAL: Denies any joint pain, swelling, or any muscle pain. ENDOCRINE: Denies any polyuria or polydipsia. The rest of the 14-point review of systems is negative. Past Medical History Past Medical History: Hypertension History of Any Multi-Drug Resistant Organisms: None Reported Past Surgical History: Orthopedic Surgery Past Psychological History: No Psychological Hx Reported Smoking Status: Never smoker Past Drug Use History: None Reported Medications and Allergies Home Medications Medication Instructions Recorded Confirmed Type Ascorbic Acid [Vitamin C] 1,000 mg PO DAILY 10/26/22 09/18/24 History Cholecalciferol [Vitamin D3 (25 75 mcg PO DAILY 10/26/22 09/18/24 History Mcg = 1000 Iu)] Cyanocobalamin (Vitamin B-12) 1,000 mcg PO DAILY 10/26/22 09/18/24 History [Vitamin B-12] Losartan [Cozaar] 25 mg PO HS 10/26/22 09/18/24 History Omeprazole 20 mg PO DAILY 10/26/22 09/18/24 History hydroCHLOROthiazide 25 mg PO DAILY 10/26/22 09/18/24 History Propylene Glycol/Peg 400 [Systane 1 - 2 drop BOTH EYES DIRECTED 09/18/2409/05 History Ultra 0.4-0.3% Eye Drp] PRN Allergies Allergy/AdvReac Type Severity Reaction Status Date / Time nitrofurantoin AdvReac flu Verified 09/18/24 10:04 [From Macrobid] symptoms Physical Exam Vitals: Vital Signs Temp Pulse Pulse Resp BP BP Pulse Ox 09/18/24 07:51 98.1 F 75 20 149/71 97 09/18/24 00:04 98.0 F 84 16 178/80 96 09/17/24 23:32 98.3 F 77 16 167/74 96 09/17/24 19:04 98.1 F 75 20 147/99 99 09/17/24 14:52 98.2 F 94 18 162/95 94 L Intake and Output 09/17/24 09/18/24 09/18/24 22:59 06:59 14:59 Intake Total 540 Balance 540 Intake: Oral 540 Other: Voiding Method Toilet # Voids 4 Weight 86.636 kg GENERAL: The patient is alert and oriented x2-3, baseline well developed, well nourished. Appears older than stated age HEENT: Pupils are round and equally reacting to light. EOMI. no scleral icterus. No conjunctival pallor. Normocephalic, atraumatic. No pharyngeal erythema. No thyromegaly. CARDIOVASCULAR: S1 and S2 muffled PULMONARY: diminished breath sounds bilaterally with no wheezing or rhonchi noted. ABDOMEN: soft. Nontender on exam. obese. non-distended, normoactive bowel sounds. No palpable organomegaly. MUSCULOSKELETAL: No joint swelling or deformity. EXTREMITIES: No cyanosis, clubbing, or pedal edema. NEUROLOGICAL: Gross neurological examination did not reveal any focal deficits. Diffuse weakness SKIN: No rashes. Results CBC & Chem 7: 09/18/24 06:00 09/18/24 08:41 Labs: Abnormal Lab Results - Last 24 Hours (Table) 09/17/24 09/17/24 09/17/24 Range/Units 18:31 18:41 19:25 WBC 14.0 H (3.8-10.6) k/uL Plt Count (150-450) k/uL Neutrophils # 11.3 H (1.3-7.7) k/uL Sodium 127 L (137-145) mmol/L Potassium 3.1 L (3.5-5.1) mmol/L Chloride 86 L (98-107) mmol/L Carbon Dioxide (22-30) mmol/L Glucose 117 H (74-99) mg/dL AST 45 H (14-36) U/L ALT 82 H (4-34) U/L Alkaline Phosphatase 382 H (38-126) U/L Total Protein (6.3-8.2) g/dL Albumin (3.5-5.0) g/dL Urine Ketones 1+ H (Negative) 09/18/24 09/18/24 09/18/24 Range/Units 06:00 06:00 08:41 WBC 11.7 H (3.8-10.6) k/uL Plt Count 459 H (150-450) k/uL Neutrophils # 9.1 H (1.3-7.7) k/uL Sodium 129 L 129 L (137-145) mmol/L Potassium 3.2 L 3.2 L (3.5-5.1) mmol/L Chloride 88 L 91 L (98-107) mmol/L Carbon Dioxide 32 H (22-30) mmol/L Glucose 113 H 126 H (74-99) mg/dL AST 42 H (14-36) U/L ALT 68 H (4-34) U/L Alkaline Phosphatase 313 H (38-126) U/L Total Protein 6.1 L (6.3-8.2) g/dL Albumin 3.3 L (3.5-5.0) g/dL Urine Ketones (Negative) Thrombosis Risk Factor Assmnt - Choose All That Apply Each Risk Factor Represents 2 Points: Age 61-74 years Thrombosis Risk Factor Assessment Total Risk Factor Score: 2 Thrombosis Risk Factor Assessment Level: Low Risk Assessment and Plan Assessment: 1. Right upper quadrant pain/acute cholecystitis -Patient has been admitted with intractable nausea and vomiting with right upper quadrant pain -CT of the abdomen and pelvis completed reveals findings strongly suspicious for acute cholecystitis -Patient has been evaluated by general surgery with plans for OR tomorrow morning -Patient has been placed on IV Zosyn; we will monitor CBC, CRP and procalcitonin 2. Leukocytosis; likely associated with acute cholecystitis -White blood count trending down to 14 upon admission down to 11.7 this morning -Patient remains on IV Zosyn -We will continue to monitor CBC; cultures are obtained 3. Hyponatremia; likely associated with diuretic use; patient is on hydrochlorothiazide -We will continue hydrochlorothiazide since sodium is continuing to improve and is at 129 this morning, up from 127 upon admission -We will monitor electrolytes closely 4. Hypokalemia; will supplement with oral potassium; monitor electrolytes and supplement as needed 5. Hypertension; patient takes Cozaar 25 mg p.o. nightly; hydrochlorothiazide 25 mg daily 6. Gastroesophageal reflux disease; omeprazole 20 mg daily DVT prophylaxis; SCDs only given expected surgery next 24 hours CODE STATUS; full code
[2024-09-18] MEDS: hydroCHLOROthiazide 25 MG TAB PO SCH (18:18)
[2024-09-18] MEDS: PANTOPRAZOLE 40 MG TABLET PO SCH (20:29)
[2024-09-18] MEDS: LOSARTAN 25 MG TAB PO SCH (20:29)
[2024-09-19 05:17] LABS: Basophils % (A) 0 %; Eosinophils # (A) 0.2 k/uL (0-0.7); Eosinophils % (A) 2 %; HCT 39.3 % (34.0-46.0); HGB 12.4 gm/dL (11.4-16.0); Lymphocytes # (A) 1.7 k/uL (1.0-4.8); Lymphocytes % (A) 14 %; MCH 29.9 pg (25.0-35.0); MCHC 31.6 g/dL (31.0-37.0); MCV 94.8 fL (80.0-100.0); Mean Platelet Volume 6.9; Monocytes # (A) 0.5 k/uL (0-1.0); Monocytes % (A) 5 %; Neutrophils # (A) 9.1 k/uL (1.3-7.7); Neutrophils % (A) 78 %; Platelet Count 476 k/uL (150-450); RBC 4.14 m/uL (3.80-5.40); RDW 12.7 % (11.5-15.5); WBC 11.6 k/uL (3.8-10.6)
[2024-09-19 06:07] LABS: ALT 75 U/L (4-34); AST 54 U/L (14-36); African American GFR (CKD) >90 (>60 ml/min/1.73 sqM); Albumin 3.3 g/dL (3.5-5.0); Albumin/Globulin Ratio 1.1; Alkaline Phosphatase 307 U/L (38-126); Anion Gap 11 mmol/L; Blood Urea Nitrogen 4 mg/dL (7-17); Calcium 8.8 mg/dL (8.4-10.2); Carbon Dioxide 28 mmol/L (22-30); Chloride 92 mmol/L (98-107); Globulin 2.9 g/dL; Glucose 115 mg/dL (74-99); Non-African American GFR(CKD) >90 (>60 ml/min/1.73 sqM); Potassium 3.6 mmol/L (3.5-5.1); Sodium 131 mmol/L (137-145); Total Bilirubin 0.8 mg/dL (0.2-1.3); Total Protein 6.2 g/dL (6.3-8.2)
[2024-09-19] MEDS ORDERED: PANTOPRAZOLE 40 MG TABLET PO SCH (07:30)
[2024-09-19] MEDS: CHOLECALCIFEROL 25 MCG (1000 IU) TABLET PO SCH (08:28)
[2024-09-19] MEDS: CYANOCOBALAMIN 500 MCG TAB PO SCH (08:28)
[2024-09-19] MEDS: ASCORBIC ACID 500 MG TAB PO SCH (08:28)
[2024-09-19] MEDS: DEXAMETHASONE SOD PHOSPHATE 4 MG/ML 1 ML VIAL IVP STA (09:51)
[2024-09-19] MEDS: ONDANSETRON 4 MG/2 ML VIAL IVP PRN (09:52)
[2024-09-19] MEDS ORDERED: NEOSTIGMINE 1 MG/ML 10 ML VIAL ONE (09:56)
[2024-09-19] MEDS ORDERED: KETOROLAC 15 MG/ML 1 ML VIAL ONE (09:56)
[2024-09-19] MEDS ORDERED: MIDAZOLAM 2 MG/2 ML VIAL ONE (09:56)
[2024-09-19] MEDS ORDERED: ROCURONIUM 10 MG/ML (5 ML VIAL) IV ONE (09:56)
[2024-09-19] MEDS ORDERED: PROPOFOL 10 MG/ML 20 ML VIAL IV ONE (09:56)
[2024-09-19] MEDS ORDERED: LIDOCAINE 1% INJ 10MG/ML (20 ML MDV) ONE (09:56)
[2024-09-19] MEDS ORDERED: LIDOCAINE 4% LTA KIT (4 ML) TOPICAL ONE (09:56)
[2024-09-19] MEDS ORDERED: GLYCOPYRROLATE 0.2 MG/ML 2 ML VIAL ONE (09:56)
[2024-09-19] MEDS ORDERED: SUCCINYLCHOLINE CHLORIDE 200 MG/10 ML VIAL IV ONE (09:56)
[2024-09-19] MEDS ORDERED: fentaNYL (PF) 50 MCG/ML 2 ML AMP ONE (09:56)
[2024-09-19] MEDS: IV FLUID CONTINUATION 1,000 ML IV ONE (10:00)
[2024-09-19] MEDS: LIDOCAINE 1%-EPI 1:100,000 20 ML VIAL SQ ONE (10:17)
[2024-09-19] MEDS: HYDROmorphone 0.5 MG/0.5 ML SYRINGE IVP PRN (11:47)
[2024-09-19] MEDS: SODIUM CHLORIDE 0.9% 1,000 ML IV ONE (12:19)
--- NOTE | 2024-09-19 13:16 | P.OP ---
Date of Procedure: 09/19/24 Preoperative Diagnosis: Acute Cholecystitis Postoperative Diagnosis: Acute Gangrenous Cholecystitis Procedure(s) Performed: Robotic Subtotal Cholecystectomy Anesthesia: CARLYN Surgeon: Sid Block Estimated Blood Loss (ml): 100 Pathology: other (Gallbladder) Condition: stable Disposition: PACU Description of Procedure: The patient was brought to the operating suite and placed in the supine position. Anesthesia was given and endotracheal intubation was performed. The patient was prepped and draped in usual sterile fashion. A timeout was performed. A #15 blade was used to make an incision at [place] and a 5 mm optiview was used to gain access to the abdominal cavity. The abdomen was insufflated. The patient was positioned. Three additional working 8 mm robotic ports were placed on the right side of the abdomen and the 5 mm port at [place] was exchanged for a 12 mm robotic port. The robot was docked. I then performed the next portions of the surgery from the robotic console. Upon inspection, the gallbladder was noted to be gangrenous and necrotic. There was a significant amount of inflammation and some omentum was adhered to the gallbladder. The omentum was taken down with a hook. The gallbladder was positioned and I started dissection. I was able to identify the base of the gallbladder. However when I began dissection, due to the necrosis and inflammation of the gallbladder, I was unable to safely identify the cystic duct and artery entering the gallbladder. I decided at this point, I would perform a fenestrated subtotal cholecystectomy. I used a hook cautery to open the gallbladder at the base of the gallbladder. A suction core carrier was used to suction out the gallbladder. A hook cautery was then used to dissect the gallbladder from this portion of the cuff upward off of the gallbladder. Once the gallbladder was freed from the liver, there was a very small cuff of gallbladder left. The gallbladder was removed with an endocatch through the 12 mm port. The abdomen was then thoroughly irrigated with copious amounts of saline. A #19 F TAMMY was placed in the RUQ and secured in place with a #2-0 Nylon. The ports were removed at this point. The incisions were closed with 4- 0 monocryl. Skin glue was applied. This concluded the surgery. The patient was extubated at the conclusion of the surgery and sent to the PACU in stable condition.
[2024-09-19] MEDS: MORPHINE SULFATE 4 MG/ML SYRINGE IV PRN (15:28)
--- NOTE | 2024-09-19 15:40 | P.PN ---
Subjective Progress Note Date: 09/19/24 68-year-old female, history of hypertension, who presents emergency department with right upper quadrant pain. States that has been going on for the past week. She has had fevers ongoing since Saturday. Also reports to nausea, vomiting and diarrhea. She was seen in her primary care clinic. Laboratory s tudies were completed. She was told that her white blood cell count was high. They did repeat this test 2 days in a row. White count continue to be high and she was told that she was dehydrated. An ultrasound was ordered however patient was awaiting callback for her study and still has not heard when this test will be performed. She continued to feel nauseated and therefore brought her self i nto the emergency department. She denies chest pain or difficulty breathing. States that the stools have not been black or bloody. She took a dose of Tylenol this morning at 8 AM. No other alleviating, precipitating modifying factors --Patient scheduled for cholecystectomy this morning Objective - Vital Signs Vital signs: Vital Signs Temp 98.4 F 09/19/24 07:12 Pulse 75 09/19/24 08:35 Resp 18 09/19/24 08:35 BP 145/72 09/19/24 07:12 Pulse Ox 94 L 09/19/24 07:12 FiO2 Intake & Output 09/18/24 09/19/24 09/19/24 18:59 06:59 18:59 Other: Voiding Method Toilet Toilet # Voids 3 3 # Bowel Movements 0 - Labs CBC & Chem 7: 09/19/24 04:42 09/19/24 04:42 Labs: Abnormal Lab Results - Last 24 Hours (Table) 09/19/24 09/19/24 Range/Units 04:42 04:42 WBC 11.6 H (3.8-10.6) k/uL Plt Count 476 H (150-450) k/uL Neutrophils # 9.1 H (1.3-7.7) k/uL Sodium 131 L (137-145) mmol/L Chloride 92 L (98-107) mmol/L BUN 4 L (7-17) mg/dL Glucose 115 H (74-99) mg/dL AST 54 H (14-36) U/L ALT 75 H (4-34) U/L Alkaline Phosphatase 307 H (38-126) U/L Total Protein 6.2 L (6.3-8.2) g/dL Albumin 3.3 L (3.5-5.0) g/dL Microbiology - Last 24 Hours (Table) 09/17/24 23:34 Blood Culture - Preliminary Blood Assessment and Plan Assessment: 1. Right upper quadrant pain/acute cholecystitis -Patient has been admitted with intractable nausea and vomiting with right upper quadrant pain -CT of the abdomen and pelvis completed reveals findings strongly suspicious for acute cholecystitis -Patient has been evaluated by general surgery with plans for OR tomorrow mor dionisio -Patient has been placed on IV Zosyn; we will monitor CBC, CRP and procalcitonin 2. Leukocytosis; likely associated with acute cholecystitis -White blood count trending down to 14 upon admission down to 11.7 this morning -Patient remains on IV Zosyn -We will continue to monitor CBC; cultures are obtained 3. Hyponatremia; likely associated with diuretic use; patient is on hydrochlorothiazide -We will continue hydrochlorothiazide since sodium is continuing to improve and is at 129 this morning, up from 127 upon admission -We will monitor electrolytes closely 4. Hypokalemia; will supplement with oral potassium; monitor electrolytes and supplement as needed 5. Hypertension; patient takes Cozaar 25 mg p.o. nightly; hydrochlorothiazide 25 mg daily 6. Gastroesophageal reflux disease; omeprazole 20 mg daily DVT prophylaxis; SCDs only given expected surgery next 24 hours CODE STATUS; full code
[2024-09-20] MEDS: HYDROcodone/APAP 10-325MG 1 EACH TAB PO PRN (08:09)
[2024-09-20 09:23] LABS: ALT 72 U/L (8-44); AST 54 U/L (13-35); Albumin 3.6 g/dL (3.8-4.9); Albumin/Globulin Ratio 1.44 Ratio (1.60-3.17); Alkaline Phosphatase 281 U/L (41-126); BUN/Creat Ratio 7.25 Ratio (12.00-20.00); Bilirubin, Conjugated 0.26 mg/dL (0.20-0.40); Bilirubin,Unconjugated 0.14 mg/dL (0.20-1.00); Blood Urea Nitrogen 5.8 mg/dL (9.0-27.0); Calcium 8.8 mg/dL (8.7-10.3); Carbon Dioxide 26.1 mmol/L (21.6-31.8); Chloride 99 mmol/L (96-109); Globulin 2.5 g/dL (1.6-3.3); Glucose 110 mg/dL (70-110); Potassium 4.3 mmol/L (3.5-5.5); Sodium 138 mmol/L (135-145); Total Bilirubin 0.4 mg/dL (0.3-1.2); Total Protein 6.1 g/dL (6.2-8.2)
[2024-09-20 09:23] LABS: Basophils # (A) 0.02 X 10*3/uL (0.00-0.10); Basophils % (A) 0.2 %; Eosinophils # (A) 0.03 X 10*3/uL (0.04-0.35); Eosinophils % (A) 0.2 %; HCT 35.4 % (37.2-46.3); HGB 11.6 g/dL (12.0-15.0); Lymphocytes # (A) 1.73 X 10*3/uL (0.90-5.00); Lymphocytes % (A) 14.3 %; MCHC 32.8 g/dL (32.0-37.0); MCV 94.7 FL (80.0-97.0); Mean Platelet Volume 8.5 FL (9.5-12.2); Monocytes # (A) 0.91 X 10*3/uL (0.20-1.00); Monocytes % (A) 7.5 %; NRBC Per 100 WBC 0 X 10*3/uL (0.00-0.01); Neutrophils # (A) 9.28 X 10*3/uL (1.80-7.70); Neutrophils % (A) 76.7 %; Platelet Count 457 X 10*3/uL (140-440); RBC 3.74 X 10*6/uL (4.10-5.20); RDW 13.1 % (11.5-14.5)
--- NOTE | 2024-09-20 09:23 | P.PN ---
Progress Note - Text Progress Note Date: 09/20/24 HISTORY OF PRESENT ILLNESS: Postop day #1 status Fenestrated Subotal Cholecystectomy for gangrenous cholecysitis. Pain controlled. Patient tolerating diet. TAMMY drain is bilious. PHYSICAL EXAM: VITAL SIGNS: Reviewed. GENERAL: Well-developed in no acute distress. ABDOMEN: Soft. Nondistended. Incision clean dry and intact, TAMMY is bilious NEUROLOGIC: Alert and oriented. Cranial nerves II through XII grossly intact. ASSESSMENT: 1. Gangrenous Cholecystitis s/p Subtotal Cholecystectomy PLAN: -Full Liquid Diet -Continue Antibiotics -GI consult for ERCP -Nausea and Pain Control -Monitor TAMMY drain Sid Block DO [facility] [phone]
--- NOTE | 2024-09-20 18:30 | P.PN ---
Subjective Progress Note Date: 09/20/24 68-year-old female, history of hypertension, who presents emergency department with right upper quadrant pain. States that has been going on for the past week. She has had fevers ongoing since Saturday. Also reports to nausea, vomiting and diarrhea. She was seen in her primary care clinic. Laboratory s tudies were completed. She was told that her white blood cell count was high. They did repeat this test 2 days in a row. White count continue to be high and she was told that she was dehydrated. An ultrasound was ordered however patient was awaiting callback for her study and still has not heard when this test will be performed. She continued to feel nauseated and therefore brought her self i nto the emergency department. She denies chest pain or difficulty breathing. States that the stools have not been black or bloody. She took a dose of Tylenol this morning at 8 AM. No other alleviating, precipitating modifying factors --Patient scheduled for cholecystectomy this morning 09/20/2024 Patient is seen and evaluated in room at bedside; status post subtotal c holecystectomy for gangrenous cholecystitis Vital signs are reviewed and are stable Lab review shows WBCs of 12.1, hemoglobin of 11.6 and platelet count of 457, sodium 138, potassium 4.3, BUN/creatinine of 5.8/0.8, liver enzymes remain elevated -Patient has been reevaluated by general surgery and recommending GI consult for ERCP Objective - Vital Signs Vital signs: Vital Signs Temp 98.5 F 09/20/24 06:54 Pulse 81 09/20/24 08:10 Resp 18 09/20/24 08:10 BP 152/78 09/20/24 06:54 Pulse Ox 98 09/20/24 06:54 FiO2 Intake & Output 09/19/24 09/20/24 09/20/24 18:59 06:59 18:59 Intake Total 850 Output Total 25 141 130 Balance 825 -141 -130 Weight 86.636 kg Intake: IV 850 Output: Drainage 140 130 Right Lower Abdomen 140 130 Urine 1 Estimated Blood Loss 25 Other: Voiding Method Toilet Toilet Toilet # Voids 1 3 - Exam GENERAL: The patient is alert and oriented x2-3, baseline well developed, well nourished. Appears older than stated age HEENT: Pupils are round and equally reacting to light. EOMI. no scleral icterus. No conjunctival pallor. Normocephalic, atraumatic. No pharyngeal erythema. No thyromegaly. CARDIOVASCULAR: S1 and S2 muffled PULMONARY: diminished breath sounds bilaterally with no wheezing or rhonchi noted. ABDOMEN: soft. Nontender on exam. obese. non-distended, normoactive bowel sounds. No palpable organomegaly. MUSCULOSKELETAL: No joint swelling or deformity. EXTREMITIES: No cyanosis, clubbing, or pedal edema. NEUROLOGICAL: Gross neurological examination did not reveal any focal deficits. Diffuse weakness SKIN: No rashes. - Labs CBC & Chem 7: 09/20/24 06:14 09/20/24 06:08 Labs: Abnormal Lab Results - Last 24 Hours (Table) 09/20/24 09/20/24 Range/Units 06:08 06:14 WBC 12.10 H (4.50-10.00) X 10*3/uL RBC 3.74 L (4.10-5.20) X 10*6/uL Hgb 11.6 L (12.0-15.0) g/dL Hct 35.4 L (37.2-46.3) % Plt Count 457 H (140-440) X 10*3/uL MPV 8.5 L (9.5-12.2) FL Immature Gran # 0.13 H (0.00-0.04) X 10*3/uL Neutrophils # 9.28 H (1.80-7.70) X 10*3/uL Eosinophils # 0.03 L (0.04-0.35) X 10*3/uL Anion Gap 12.90 H (4.00-12.00) mmol/L BUN 5.8 L (9.0-27.0) mg/dL BUN/Creatinine Ratio 7.25 L (12.00-20.00) Ratio Unconjugated Bilirubin 0.14 L (0.20-1.00) mg/dL AST 54 H (13-35) U/L ALT 72 H (8-44) U/L Alkaline Phosphatase 281 H (41-126) U/L Total Protein 6.1 L (6.2-8.2) g/dL Albumin 3.6 L (3.8-4.9) g/dL Albumin/Globulin Ratio 1.44 L (1.60-3.17) Ratio Microbiology - Last 24 Hours (Table) 09/17/24 23:34 Blood Culture - Preliminary Blood Assessment and Plan Assessment: 1. Right upper quadrant pain/acute cholecystitis -Patient has been admitted with intractable nausea and vomiting with right upper quadrant pain -CT of the abdomen and pelvis completed reveals findings strongly suspicious for acute cholecystitis -Patient has been evaluated by general surgery with plans for OR tomorrow morning -Patient has been placed on IV Zosyn; we will monitor CBC, CRP and procalcitonin 2. Leukocytosis; likely associated with acute cholecystitis -White blood count trending down to 14 upon admission down to 11.7 this morning -Patient remains on IV Zosyn -We will continue to monitor CBC; cultures are obtained 3. Hyponatremia; likely associated with diuretic use; patient is on hydrochlorothiazide -We will continue hydrochlorothiazide since sodium is continuing to improve and is at 129 this morning, up from 127 upon admission -We will monitor electrolytes closely 4. Hypokalemia; will supplement with oral potassium; monitor electrolytes and supplement as needed 5. Hypertension; patient takes Cozaar 25 mg p.o. nightly; hydrochlorothiazide 25 mg daily 6. Gastroesophageal reflux disease; omeprazole 20 mg daily DVT prophylaxis; SCDs only given expected surgery next 24 hours CODE STATUS; full code
[2024-09-21 03:59] LABS: Basophils % (A) 0 %; Eosinophils # (A) 0.5 k/uL (0-0.7); Eosinophils % (A) 5 %; HCT 36.2 % (34.0-46.0); HGB 11.8 gm/dL (11.4-16.0); Lymphocytes # (A) 2.5 k/uL (1.0-4.8); Lymphocytes % (A) 22 %; MCHC 32.5 g/dL (31.0-37.0); MCV 95.3 fL (80.0-100.0); Mean Platelet Volume 6.8; Monocytes # (A) 0.6 k/uL (0-1.0); Monocytes % (A) 6 %; Neutrophils # (A) 7.5 k/uL (1.3-7.7); Neutrophils % (A) 66 %; Platelet Count 468 k/uL (150-450); RDW 12.7 % (11.5-15.5); WBC 11.4 k/uL (3.8-10.6)
[2024-09-21 07:42] LABS: ALT 57 U/L (4-34); AST 37 U/L (14-36); African American GFR (CKD) >90 (>60 ml/min/1.73 sqM); Albumin 3.5 g/dL (3.5-5.0); Albumin/Globulin Ratio 1.3; Alkaline Phosphatase 229 U/L (38-126); Anion Gap 9 mmol/L; Bilirubin,Unconjugated 0.4 mg/dL (0.0-1.1); Blood Urea Nitrogen 4 mg/dL (7-17); Calcium 8.8 mg/dL (8.4-10.2); Carbon Dioxide 31 mmol/L (22-30); Chloride 90 mmol/L (98-107); Globulin 2.8 g/dL; Glucose 112 mg/dL (74-99); Non-African American GFR(CKD) >90 (>60 ml/min/1.73 sqM); Potassium 3.6 mmol/L (3.5-5.1); Sodium 130 mmol/L (137-145); Total Bilirubin 0.7 mg/dL (0.2-1.3); Total Protein 6.3 g/dL (6.3-8.2)
--- NOTE | 2024-09-21 09:43 | P.CONS ---
History of Present Illness - Reason for Consult Consult date: 09/21/24 ERCP Requesting physician: Sid Block - Chief Complaint Acute cholecystitis - History of Present Illness This is a pleasant 68-year-old female who had presented to the emergency department 4 days ago with complaints of nausea, vomiting and diarrhea with fever. She had outpatient blood work with leukocytosis and gallbladder ultrasound. She continued to have nausea and vomiting over a week and she came in for further evaluation. She had a CT of the abdomen pelvis with strong suspicion for severe acute cholecystitis. She was seen by general surgery and ended up undergoing robotic subtotal cholecystectomy with findings of acute gangrenous cholecystitis. TAMMY drain was placed and postop was noted to have bilious output per reports from general surgery. She is postop day #2. Gastroenterology was consulted for ERCP for concern for bile leak. Past medical history includes hypertension. Patient states she never had real severe abdominal pain that brought her into the hospital it was more the nausea vomiting and diarrhea. She states she has some surgical tenderness but no significant right upper quadrant pain at this time. She is tolerating a full liquid diet. Denies passing flatus or having a bowel movement. But states that she feels though she may have the urge. States that she has not had any nausea or vomiting since Saturday. She has been afebrile. Today's labs WBC 11.4 hemoglobin 11.8 platelet count 468,000 sodium 130 potassium 3.6 BUN 4 creatinine 0.6 total bilirubin 0.7 AST 37 ALT 57 alkaline phosphatase 229. LFTs have been trending down. Review of Systems REVIEW OF SYSTEMS: CARDIOPULMONARY: No chest pain or shortness of breath. Gastrointestinal: Postoperative abdominal pain near surgical incisions. No nausea or vomiting. No hematemesis, coffee-ground emesis. No rectal bleeding, or melena. GENITOURINARY: No dysuria or hematuria. MUSCULOSKELETAL: Reports normal range of motion., Joint pain. SKIN: No rashes. No jaundice. ENDOCRINE: No chills, fevers. No excessive weight gain or loss. No polydipsia or polyuria. PSYCHIATRIC: Unremarkable. NEUROLOGY: No change in mental status. Denies dizziness, headache. ENT: Vision unremarkable. CONSTITUTIONAL: No recent weight loss. No fever, chills, night sweats. Past Medical History Past Medical History: Hypertension History of Any Multi-Drug Resistant Organisms: None Reported Past Surgical History: Orthopedic Surgery Past Psychological History: No Psychological Hx Reported Smoking Status: Never smoker Past Alcohol Use History: Daily Past Drug Use History: None Reported Medications and Allergies Home Medications Medication Instructions Recorded Confirmed Type Ascorbic Acid [Vitamin C] 1,000 mg PO DAILY 10/26/22 09/18/24 History Cholecalciferol [Vitamin D3 (25 75 mcg PO DAILY 10/26/22 09/18/24 History Mcg = 1000 Iu)] Cyanocobalamin (Vitamin B-12) 1,000 mcg PO DAILY 10/26/22 09/18/24 History [Vitamin B-12] Losartan [Cozaar] 25 mg PO HS 10/26/22 09/18/24 History Omeprazole 20 mg PO DAILY 10/26/22 09/18/24 History hydroCHLOROthiazide 25 mg PO DAILY 10/26/22 09/18/24 History Propylene Glycol/Peg 400 [Systane 1 - 2 drop BOTH EYES DIRECTED 09/18/24 09/18/24 History Ultra 0.4-0.3% Eye Drp] PRN Allergies Allergy/AdvReac Type Severity Reaction Status Date / Time nitrofurantoin AdvReac flu Verified 09/18/24 10:04 [From Macrobid] symptoms Physical Exam Vitals: Vital Signs Temp Pulse Resp BP BP Pulse Ox 09/21/24 06:51 98.1 F 88 18 154/81 95 09/21/24 00:26 98.1 F 80 17 136/71 97 09/20/24 19:13 97.7 F 86 17 154/78 93 L 09/20/24 13:51 97.7 F 92 18 163/78 91 L 09/20/24 08:10 81 18 Intake and Output 09/20/24 09/21/24 09/21/24 22:59 06:59 14:59 Output Total 190 100 Balance -190 -100 Output: Drainage 190 100 Right Lower Abdomen 190 100 Other: Voiding Method Toilet # Voids 4 2 General appearance: The patient is alert, oriented, appears in no acute d istress. HET: Head is normocephalic and atraumatic. Conjunctiva pink. Sclera anicteric. Neck: Supple without lymphadenopathy. Trachea midline. Heart: Regular. Lungs: Equal expansion, normal respiratory effort. Abdomen: Soft, right side of abdomen with TAMMY drain with more serosanguineous fluid in drain tube. Surgical incision site well-approximated, mild distention, positive bowel sounds, tender to palpation near surgical incisions. Skin: No rashes. No jaundice. Extremities: Normal skin color and turgor. No pedal edema. Neurological: No focal deficits. Alert and oriented x3. Results CBC & Chem 7: 09/21/24 03:42 09/21/24 07:02 Labs: Abnormal Lab Results - Last 24 Hours (Table) 09/20/24 09/20/24 09/21/24 Range/Units 06:08 06:14 03:42 WBC 12.10 H 11.4 H (4.50-10.00) X 10*3/uL RBC 3.74 L (4.10-5.20) X 10*6/uL Hgb 11.6 L (12.0-15.0) g/dL Hct 35.4 L (37.2-46.3) % Plt Count 457 H 468 H (140-440) X 10*3/uL MPV 8.5 L (9.5-12.2) FL Immature Gran # 0.13 H (0.00-0.04) X 10*3/uL Neutrophils # 9.28 H (1.80-7.70) X 10*3/uL Eosinophils # 0.03 L (0.04-0.35) X 10*3/uL Sodium (137-145) mmol/L Chloride (98-107) mmol/L Carbon Dioxide (22-30) mmol/L Anion Gap 12.90 H (4.00-12.00) mmol/L BUN 5.8 L (9.0-27.0) mg/dL BUN/Creatinine Ratio 7.25 L (12.00-20.00) Ratio Glucose (74-99) mg/dL Unconjugated Bilirubin 0.14 L (0.20-1.00) mg/dL AST 54 H (13-35) U/L ALT 72 H (8-44) U/L Alkaline Phosphatase 281 H (41-126) U/L Total Protein 6.1 L (6.2-8.2) g/dL Albumin 3.6 L (3.8-4.9) g/dL Albumin/Globulin Ratio 1.44 L (1.60-3.17) Ratio 09/21/24 Range/Units 07:02 WBC (4.50-10.00) X 10*3/uL RBC (4.10-5.20) X 10*6/uL Hgb (12.0-15.0) g/dL Hct (37.2-46.3) % Plt Count (140-440) X 10*3/uL MPV (9.5-12.2) FL Immature Gran # (0.00-0.04) X 10*3/uL Neutrophils # (1.80-7.70) X 10*3/uL Eosinophils # (0.04-0.35) X 10*3/uL Sodium 130 L (137-145) mmol/L Chloride 90 L (98-107) mmol/L Carbon Dioxide 31 H (22-30) mmol/L Anion Gap (4.00-12.00) mmol/L BUN 4 L (9.0-27.0) mg/dL BUN/Creatinine Ratio (12.00-20.00) Ratio Glucose 112 H (74-99) mg/dL Unconjugated Bilirubin (0.20-1.00) mg/dL AST 37 H (13-35) U/L ALT 57 H (8-44) U/L Alkaline Phosphatase 229 H (41-126) U/L Total Protein (6.2-8.2) g/dL Albumin (3.8-4.9) g/dL Albumin/Globulin Ratio (1.60-3.17) Ratio Microbiology - Last 24 Hours (Table) 09/17/24 23:34 Blood Culture - Preliminary Blood Comments: CT abdomen pelvis report liver is heterogeneously hypodense suggesting diffuse fatty infiltrative hepatocellular disease. Gallbladder dilated with distended margins and he has edematous wall thickening and possible contained anterior perforation. No biliary dilation. Impression is strongly suspicious for severe acute cholecystitis. Assessment and Plan (1) Postoperative bile leak Narrative/Plan: 68-year-old female presenting with nausea vomiting and diarrhea with elevated LF Ts and CT evidence of acute cholecystitis status post robotic subtotal cholecystectomy with TAMMY drain with reported bilious output and concern for bile leak. No hyperbilirubinemia, AST ALT and alkaline phosphatase continue to trend down. No acute right upper quadrant abdominal pain post surgery. Yesterday patient had close to 500 output from TAMMY drain and cell for today patient now has had close to 200 output. Patient likely with bile leak, will plan for ERCP with stent placement tomorrow. Current Visit: Yes Status: Acute Code(s): K91.89 - OTH POSTPROCEDURAL COMPLICATIONS AND DISORDERS OF DGSTV SYS; K83.8 - OTHER SPECIFIED DISEASES OF BILIARY TRACT SNOMED Code(s): 883414865 (2) Cholecystitis with gangrene of gallbladder Current Visit: Yes Status: Acute Code(s): K82.A1 - GANGRENE OF GALLBLADDER IN CHOLECYSTITIS SNOMED Code(s): 219896893 (3) Hx of cholecystectomy Current Visit: Yes Status: Acute Code(s): Z90.49 - ACQUIRED ABSENCE OF OTHER SPECIFIED PARTS OF DIGESTIVE TRACT SNOMED Code(s): 707389956 Plan: 1. Continue symptomatic and supportive care 2. Continue antibiotics per recommendations from general surgery 3. Continue to monitor TAMMY drain output 4. N.p.o. after midnight 5. Will plan for ERCP with stent placement tomorrow. Procedure discussed with patient including benefits and risk. Patient agreeable to proceed. 6. Further recommendations forthcoming based on clinical course Thank you for this consultation, we will continue to follow. Dr. Rambo Erwin I agree with the dictator's note, documented as a scribe by Joselyn Cano.
--- NOTE | 2024-09-21 10:10 | P.PN ---
Subjective 68-year-old female, history of hypertension, who presents emergency department with right upper quadrant pain. States that has been going on for the past week. She has had fevers ongoing since Saturday. Also reports to nausea, vomiting and diarrhea. She was seen in her primary care clinic. Laboratory studies were completed. She was told that her white blood cell count was high. They did repeat this test 2 days in a row. White count continue to be high and she was told that she was dehydrated. An ultrasound was ordered however patient was awaiting callback for her study and still has not heard when this test will be performed. She continued to feel nauseated and therefore brought her self into the emergency department. She denies chest pain or difficulty breathing. States that the stools have not been black or bloody. She took a dose of Tylenol this morning at 8 AM. No other alleviating, precipitating modifying factors --Patient scheduled for cholecystectomy this morning 09/20/2024 Patient is seen and evaluated in room at bedside; status post subtotal cholecystectomy for gangrenous cholecystitis Vital signs are reviewed and are stable Lab review shows WBCs of 12.1, hemoglobin of 11.6 and platelet count of 457, sodium 138, potassium 4.3, BUN/creatinine of 5.8/0.8, liver enzymes remain elevated -Patient has been reevaluated by general surgery and recommending GI consult for ERCP 09/21 Patient was seen walking in the hallway. She is with acute gangrenous cholecystitis status post laparoscopic cholecystectomy but it was up total cholecystectomy Her pain in her right upper quadrant is controlled, she is on liquid diet and tolerates that well. However no bowel movement not passing gas Liver enzymes mildly elevated 10 this been washed GI consult was placed for possible ERCP. Patient kept on Zosyn Objective - Vital Signs Vital signs: Vital Signs Temp 98.1 F 09/21/24 06:51 Pulse 88 09/21/24 06:51 Resp 18 09/21/24 06:51 BP 154/81 09/21/24 06:51 Pulse Ox 95 09/21/24 06:51 FiO2 Intake & Output 09/20/24 09/21/24 09/21/24 18:59 06:59 18:59 Output Total 290 200 Balance -290 -200 Output: Drainage 290 200 Right Lower Abdomen 290 200 Other: Voiding Method Toilet Toilet # Voids 4 2 - Exam GENERAL: The patient is alert and oriented x3, not in any acute distress. Well developed, well nourished. HEENT: Pupils are round and equally reacting to light. EOMI. No scleral icterus. No conjunctival pallor. Normocephalic, atraumatic. No pharyngeal erythema. No thyromegaly. CARDIOVASCULAR: S1 and S2 present. No murmurs, rubs, or gallops. PULMONARY: Chest is clear to auscultation, no wheezing , no crackles. -ABDOMEN: Soft, nontender, nondistended, normoactive bowel sounds. No palpable organomegaly. Abdominal puncture wounds are closed and healing. Right upper quadrant TAMMY drain in place with dark discharge long term MUSCULOSKELETAL: No joint swelling or deformity. EXTREMITIES: No cyanosis, clubbing, or pedal edema. NEUROLOGICAL: Gross neurological examination did not reveal any focal deficits. SKIN: No rashes. no petechiae. - Labs CBC & Chem 7: 09/21/24 03:42 09/21/24 07:02 Labs: Abnormal Lab Results - Last 24 Hours (Table) 09/21/24 09/21/24 Range/Units 03:42 07:02 WBC 11.4 H (3.8-10.6) k/uL Plt Count 468 H (150-450) k/uL Sodium 130 L (137-145) mmol/L Chloride 90 L (98-107) mmol/L Carbon Dioxide 31 H (22-30) mmol/L BUN 4 L (7-17) mg/dL Glucose 112 H (74-99) mg/dL AST 37 H (14-36) U/L ALT 57 H (4-34) U/L Alkaline Phosphatase 229 H (38-126) U/L Microbiology - Last 24 Hours (Table) 09/17/24 23:34 Blood Culture - Preliminary Blood Assessment and Plan Assessment: 1. Right upper quadrant pain/acute gangrenous cholecystitis -Patient has been admitted with intractable nausea and vomiting with right upper quadrant pain -CT of the abdomen and pelvis completed reveals findings strongly suspicious for acute cholecystitis -Patient has been evaluated by general surgery with plans for OR for laparoscopic cholecystectomy, subtotal -Patient has been placed on IV Zosyn; we will monitor CBC, CRP and procalcitonin -GI team consulted for possible ERCP -Transaminitis improving 2. Leukocytosis; likely associated with acute cholecystitis -White blood count trending down to 14 upon admission down to 11.7 this morning -Patient remains on IV Zosyn -We will continue to monitor CBC; cultures are obtained 3. Hyponatremia; likely associated with diuretic use; patient is on hydrochlorothiazide -We will continue hydrochlorothiazide since sodium is continuing to improve and is at 129 this morning, up from 127 upon admission -We will monitor electrolytes closely 4. Hypokalemia; will supplement with oral potassium; monitor electrolytes and supplement as needed 5. Hypertension; patient takes Cozaar 25 mg p.o. nightly; hydrochlorothiazide 25 mg daily 6. Gastroesophageal reflux disease; omeprazole 20 mg daily DVT prophylaxis; SCDs only given expected surgery next 24 hours CODE STATUS; full code
--- NOTE | 2024-09-21 12:50 | P.PN ---
Subjective Progress Note Date: 09/21/24 SURGICAL PROGRESS NOTE CHIEF COMPLAINT: Acute cholecystitis HISTORY OF PRESENT ILLNESS: Patient is postop day #2 status post robotic subtotal cholecystectomy. Patient still requiring IV pain medication. She does report some pain in the right upper quadrant. She denies any nausea or vomiting. Denies any flatus. She denies any difficulty urinating. Patient has had a lot of output from her TAMMY drain bilious in color. She is on antibiotics. LFTs are trending down. White count is down from 12-11. She is on a full liquid diet. PHYSICAL EXAM: VITAL SIGNS: Reviewed. GENERAL: Well-developed in no acute distress. ABDOMEN: Soft. Nondistended. Tenderness with palpation right upper quadrant. Incision sites clean dry and intact. TAMMY drain with bilious output. NEUROLOGIC: Alert and oriented. Cranial nerves II through XII grossly intact. ASSESSMENT: 1. Acute cholecystitis with gangrenous gallbladder status post robotic subtotal cholecystectomy 2. Postoperative bile leak PLAN: -GI service is planning ERCP with stent placement tomorrow -Continue antibiotics -Continue to monitor TAMMY drain output -Encourage patient to ambulate -Continue full liquid diet -Continue pain management Physician Courtesy Booth Cashier note has been reviewed by physician. Signing provider agrees with the documented findings, assessment, and plan of care. Attestation Patient seen and examined at bedside on 09/21/2024. Based on gangrenous gallbladder, patient did require subtotal cholecystectomy and is having mild a mount of bilious TAMMY drain output. GI service consulted with plan for ERCP tomorrow, 09/22/2024. Case was discussed in depth with the patient. Continue IV antibiotics at this time. Kimberly Mejias DO Objective - Vital Signs Vital signs: Vital Signs Temp 98.1 F 09/21/24 06:51 Pulse 88 09/21/24 06:51 Resp 18 09/21/24 06:51 BP 154/81 09/21/24 06:51 Pulse Ox 95 09/21/24 06:51 FiO2 Intake & Output 09/20/24 09/21/24 09/21/24 18:59 06:59 18:59 Output Total 290 200 80 Balance -290 -200 -80 Output: Drainage 290 200 80 Right Lower Abdomen 290 200 80 Other: Voiding Method Toilet Toilet # Voids 4 2 - Labs CBC & Chem 7: 09/22/24 03:25 09/22/24 03:25 Labs: Abnormal Lab Results - Last 24 Hours (Table) 09/21/24 09/21/24 Range/Units 03:42 07:02 WBC 11.4 H (3.8-10.6) k/uL Plt Count 468 H (150-450) k/uL Sodium 130 L (137-145) mmol/L Chloride 90 L (98-107) mmol/L Carbon Dioxide 31 H (22-30) mmol/L BUN 4 L (7-17) mg/dL Glucose 112 H (74-99) mg/dL AST 37 H (14-36) U/L ALT 57 H (4-34) U/L Alkaline Phosphatase 229 H (38-126) U/L Microbiology - Last 24 Hours (Table) 09/17/24 23:34 Blood Culture - Preliminary Blood
[2024-09-22 04:02] LABS: ALT 43 U/L (4-34); AST 32 U/L (14-36); African American GFR (CKD) >90 (>60 ml/min/1.73 sqM); Albumin 3.1 g/dL (3.5-5.0); Albumin/Globulin Ratio 1.2; Alkaline Phosphatase 187 U/L (38-126); Anion Gap 9 mmol/L; Blood Urea Nitrogen 3 mg/dL (7-17); Calcium 8.8 mg/dL (8.4-10.2); Carbon Dioxide 28 mmol/L (22-30); Chloride 94 mmol/L (98-107); Globulin 2.6 g/dL; Glucose 102 mg/dL (74-99); Non-African American GFR(CKD) >90 (>60 ml/min/1.73 sqM); Potassium 3.6 mmol/L (3.5-5.1); Sodium 131 mmol/L (137-145); Total Bilirubin 0.5 mg/dL (0.2-1.3); Total Protein 5.7 g/dL (6.3-8.2)
[2024-09-22 04:30] LABS: INR 1.1 (<1.2); Prothrombin Time 11.7 sec (10.0-12.5)
[2024-09-22 06:24] LABS: Basophils % (A) 0 %; Eosinophils # (A) 0.3 k/uL (0-0.7); Eosinophils % (A) 4 %; HCT 35.7 % (34.0-46.0); HGB 11.6 gm/dL (11.4-16.0); Lymphocytes # (A) 1.5 k/uL (1.0-4.8); Lymphocytes % (A) 21 %; MCH 31.9 pg (25.0-35.0); MCHC 32.6 g/dL (31.0-37.0); MCV 97.6 fL (80.0-100.0); Mean Platelet Volume 7.7; Monocytes # (A) 0.4 k/uL (0-1.0); Monocytes % (A) 6 %; Neutrophils # (A) 5.1 k/uL (1.3-7.7); Neutrophils % (A) 68 %; Platelet Count 498 k/uL (150-450); RBC 3.65 m/uL (3.80-5.40); RDW 12.9 % (11.5-15.5); WBC 7.5 k/uL (3.8-10.6)
[2024-09-22] MEDS: INDOMETHACIN 100 MG SUPPOSITORY RECTAL ONE (11:59)
[2024-09-22] MEDS ORDERED: MIDAZOLAM 2 MG/2 ML VIAL ONE (12:30)
[2024-09-22] MEDS ORDERED: PROPOFOL 10 MG/ML 20 ML VIAL IV ONE (12:30)
[2024-09-22] MEDS ORDERED: KETAMINE HCL IN 0.9 % NACL 50 MG/5 ML SYRINGE ONE (12:30)
[2024-09-22] MEDS: IV FLUID CONTINUATION 1,000 ML IV ONE (12:52)
--- NOTE | 2024-09-22 12:56 | P.PN ---
Subjective Progress Note Date: 09/22/24 SURGICAL PROGRESS NOTE CHIEF COMPLAINT: Acute cholecystitis HISTORY OF PRESENT ILLNESS: Patient is postop day #3 status post Robotic subtotal cholecystectomy. Patient with bile leak. She is scheduled for ERCP with stent placement today. Afebrile. White count is decreased from 11-7.5. She is having flatus. She continues to have pain. Pain is tolerable. TAMMY drain with 120 mL bilious output. PHYSICAL EXAM: VITAL SIGNS: Reviewed. GENERAL: Well-developed in no acute distress. ABDOMEN: Soft. Nondistended. Tenderness with palpation right upper quadrant. Incision sites clean dry and intact. TMAMY drain with bilious output. NEUROLOGIC: Alert and oriented. Cranial nerves II through XII grossly intact. ASSESSMENT: 1. Acute cholecystitis with gangrenous gallbladder status post robotic subtotal cholecystectomy 2. Postoperative bile leak PLAN: -GI service is planning ERCP with stent placement today -Continue antibiotics -Continue to monitor TAMMY drain output -Encourage patient to ambulate -Continue pain management Physician Financial Sales Advisor note has been reviewed by physician. Signing provider agrees with the documented findings, assessment, and plan of care. Attestation Patient seen and examined at bedside. ERCP was attempted today, however bile duct was unable to be cannulated. Recommendation for transfer to [facility] for ERCP with advanced GI team. TAMMY drain with biliary output of approximately 120 cc. Continue IV antibiotics. Case was discussed in depth with patient and patient's family at bedside. ERCP with stent placement is recommended as the next step. Transfer in progress. Kimberly Mejias, Objective - Vital Signs Vital signs: Vital Signs Temp 98.4 F 09/22/24 07:06 Pulse 91 09/22/24 07:06 Resp 18 09/22/24 07:06 BP 155/77 09/22/24 07:06 Pulse Ox 94 L 09/22/24 07:06 FiO2 Intake & Output 09/21/24 09/22/24 09/22/24 18:59 06:59 18:59 Output Total 220 35 120 Balance -220 -35 -120 Output: Drainage 220 35 120 Right Lower Abdomen 220 35 120 Other: # Voids 2 - Labs CBC & Chem 7: 09/22/24 03:25 09/22/24 03:25 Labs: Abnormal Lab Results - Last 24 Hours (Table) 09/22/24 09/22/24 Range/Units 03:25 03:25 RBC 3.65 L (3.80-5.40) m/uL Plt Count 498 H (150-450) k/uL Sodium 131 L (137-145) mmol/L Chloride 94 L (98-107) mmol/L BUN 3 L (7-17) mg/dL Glucose 102 H (74-99) mg/dL ALT 43 H (4-34) U/L Alkaline Phosphatase 187 H (38-126) U/L Total Protein 5.7 L (6.3-8.2) g/dL Albumin 3.1 L (3.5-5.0) g/dL
[2024-09-22] MEDS: IOPAMIDOL-300 50ML BTL INJ ONE (13:05)
[2024-09-22] MEDS: SODIUM CHLORIDE 0.9% 500 ML 500 ML IV ONE (13:16)
--- NOTE | 2024-09-22 13:22 | P.PCN ---
Date of Procedure: 09/22/24 Procedure(s) Performed: Brief history: Patient is a 68 year-old pleasant lady scheduled for an ERCP as part of evaluation of postcholecystectomy bile leak. She underwent gallbladder surgery for gangrenous gallbladder and has a TAMMY drain in place approximately 5 days ago. She has significant amount of biliary drainage through the TAMMY drain approximating 500 cc a day. She is not scheduled for an ERCP with possible CBD stent placement Procedure performed: Attempted ERCP Preoperative diagnoses: Post cholecystectomy bile leak IV sedation per anesthesia: Procedure: After informed consent was obtained from the patient and after the risks benefits and complications including bleeding perforation and pancreatitis explained in detail the patient was brought into the endoscopy unit. The patient was placed in prone position and IV conscious sedation was administered by anesthesia under continuous monitoring. The Olympus side-viewing duodenoscope was then inserted into the mouth and esophagus intubated without any difficulty. The scope was gradually advanced into the stomach and duodenum. The major papilla was identified without any difficulty. Initial cannulation was attempted using a tapered catheter and was not successful. Subsequently using a sphincterotome and a guidewire technique, attempts at cannulation was unsuccessful. After trying for close to 20 minutes the procedure was terminated and the patient tolerated the procedure well. Impression: Unable to cannulate the common bile duct of the pancreatic duct despite multiple attempts Recommendations: The findings of this examination were discussed with the patient as well as a family. At this time recommend transferring her to [facility] for ERCP and CBD stent placement
--- NOTE | 2024-09-22 13:36 | FL ---
Fluoroscopy History: REMOVE AND REPLACE STENT ACUTE CHOLECYSTITIS attempted ERCP, unable to get into ampulla FL time 16 seconds, DAP [id number], 1 image sent into PACS, Dr Erwin. [facility], , 09/22/2024 1:33 PM
--- NOTE | 2024-09-22 15:01 | P.PN ---
Subjective Progress Note Date: 09/22/24 68-year-old female, history of hypertension, who presents emergency department with right upper quadrant pain. States that has been going on for the past week. She has had fevers ongoing since Saturday. Also reports to nausea, vomiting and diarrhea. She was seen in her primary care clinic. Laboratory st udies were completed. She was told that her white blood cell count was high. They did repeat this test 2 days in a row. White count continue to be high and she was told that she was dehydrated. An ultrasound was ordered however patient was awaiting callback for her study and still has not heard when this test will be performed. She continued to feel nauseated and therefore brought her self in to the emergency department. She denies chest pain or difficulty breathing. States that the stools have not been black or bloody. She took a dose of Tylenol this morning at 8 AM. No other alleviating, precipitating modifying factors --Patient scheduled for cholecystectomy this morning 09/20/2024 Patient is seen and evaluated in room at bedside; status post subtotal ch olecystectomy for gangrenous cholecystitis Vital signs are reviewed and are stable Lab review shows WBCs of 12.1, hemoglobin of 11.6 and platelet count of 457, sodium 138, potassium 4.3, BUN/creatinine of 5.8/0.8, liver enzymes remain elevated -Patient has been reevaluated by general surgery and recommending GI consult for ERCP 09/21 Patient was seen walking in the hallway. She is with acute gangrenous cholecystitis status post laparoscopic cholecystectomy but it was up total cholecystectomy Her pain in her right upper quadrant is controlled, she is on liquid diet and tolerates that well. However no bowel movement not passing gas Liver enzymes mildly elevated GI consult was placed for possible ERCP. Patient kept on Zosyn 09/22. Patient seen and examined. Blood work done this morning showed WBC 7.5, hemoglobin 0.6, platelet count 498, sodium one 3 mg diazine 3.6, BUN 3, creatinine 0.60, AST 32, ALT of 43, alk phos 187,. GI planning ERCP today REVIEW OF SYSTEMS: CONSTITUTIONAL: No fever, no malaise,. CARDIOVASCULAR: No chest pain, no palpitations, no syncope. PULMONARY: No shortness of breath, no cough, GASTROINTESTINAL: No diarrhea, no nausea, no vomiting, complaining of abdominal pain NEUROLOGICAL: No headaches, no weakness, PHYSICAL EXAMINATION: GENERAL: The patient is alert and oriented x3, not in any acute distress. Well developed, well nourished. HEENT: Pupils are round and equally reacting to light. EOMI. No scleral icterus. No conjunctival pallor. Normocephalic, atraumatic. No pharyngeal erythema. No thyromegaly. CARDIOVASCULAR: S1 and S2 present. No murmurs, rubs, or gallops. PULMONARY: Chest is clear to auscultation, no wheezing or crackles. ABDOMEN: Soft, nontender, nondistended, normoactive bowel sounds. No palpable organomegaly. MUSCULOSKELETAL: No joint swelling or deformity. EXTREMITIES: No cyanosis, clubbing, or pedal edema. NEUROLOGICAL: Gross neurological examination did not reveal any focal deficits. SKIN: No rashes. Assessment and plan Right upper quadrant pain Acute gangrenous cholecystitis status post robotic cholecystectomy Postoperative bile leak Transaminitis Leukocytosis Hyponatremia Hypokalemia Hypertension Gastroesophageal reflux disease Monitor vital signs Monitor CBC Monitor CMP Continue telemetry monitoring Status post laparoscopic cholecystectomy continue IV Zosyn Monitor LFTs GI planning ERCP today Surgery following Labs and medication were reviewed.. Continue same treatment. Continue with symptomatic treatment. Resume home medication. Monitor labs and vitals. DVT and GI prophylaxis. Further recommendations as per clinical course of the patient Dictation was produced using [employer] dictation software. please excuse any grammatical, word or spelling errors. Objective - Vital Signs Vital signs: Vital Signs Temp 98.4 F 09/22/24 07:06 Pulse 91 09/22/24 07:06 Resp 18 09/22/24 07:06 BP 155/77 09/22/24 07:06 Pulse Ox 94 L 09/22/24 07:06 FiO2 Intake & Output 09/21/24 09/22/24 09/22/24 18:59 06:59 18:59 Output Total 220 35 120 Balance -220 -35 -120 Output: Drainage 220 35 120 Right Lower Abdomen 220 35 120 Other: # Voids 2 - Labs CBC & Chem 7: 09/22/24 03:25 09/22/24 03:25 Labs: Abnormal Lab Results - Last 24 Hours (Table) 09/22/24 09/22/24 Range/Units 03:25 03:25 RBC 3.65 L (3.80-5.40) m/uL Plt Count 498 H (150-450) k/uL Sodium 131 L (137-145) mmol/L Chloride 94 L (98-107) mmol/L BUN 3 L (7-17) mg/dL Glucose 102 H (74-99) mg/dL ALT 43 H (4-34) U/L Alkaline Phosphatase 187 H (38-126) U/L Total Protein 5.7 L (6.3-8.2) g/dL Albumin 3.1 L (3.5-5.0) g/dL
[2024-09-22] MEDS: HYDROCORTISONE 2.5% RECTAL CREAM 30 GM TUBE RECTAL SCH (20:47)
[2024-09-22] MEDS: ONDANSETRON 4 MG/2 ML VIAL IVP PRN (22:32)
[2024-09-23] MEDS: PANTOPRAZOLE 40 MG/10 ML VIAL IVP SCH (09:42)
--- NOTE | 2024-09-23 09:59 | P.PN ---
Subjective Progress Note Date: 09/23/24 Principal diagnosis: Bile leak This is a pleasant 68-year-old female who had presented to the emergency department 4 days ago with complaints of nausea, vomiting and diarrhea with fever. She had outpatient blood work with leukocytosis and gallbladder ultrasound. She continued to have nausea and vomiting over a week and she came in for further evaluation. She had a CT of the abdomen pelvis with strong suspicion for severe acute cholecystitis. She was seen by general surgery and ended up undergoing robotic subtotal cholecystectomy with findings of acute gangrenous cholecystitis. TAMMY drain was placed and postop was noted to have bilious output per reports from general surgery. She is postop day #2. Gastroenterology was consulted for ERCP for concern for bile leak. Past medical history includes hypertension. Patient states she never had real severe abdominal pain that brought her into the hospital it was more the nausea vomiting and diarrhea. She states she has some surgical tenderness but no significant right upper quadrant pain at this time. She is tolerating a full liquid diet. Denies passing flatus or having a bowel movement. But states that she feels though she may have the urge. States that she has not had any nausea or vomiting since Saturday. She has been afebrile. Today's labs WBC 11.4 hemoglobin 11.8 platelet count 468,000 sodium 130 potassium 3.6 BUN 4 creatinine 0.6 total bilirubin 0.7 AST 37 ALT 57 alkaline phosphatase 229. LFTs have been trending down. 09/23/2024 Patient seen and examined today as a follow-up. Yesterday she underwent ERCP with unsuccessful cannulation of the common bile duct of the pancreatic duct despite multiple attempts. Patient was discussed with general surgeon for recommendation to transfer to [facility] for ERCP and CBD stent placement. Patient has been accepted as a transfer to [facility] however she is awaiting a bed. Today patient is sitting up in bed, she denies any abdominal pain nausea or vomiting. TAMMY drain is in place with bilious output. She is afebrile. Objective - Vital Signs Vital signs: Vital Signs Temp 97.8 F 09/23/24 02:07 Pulse 87 09/23/24 02:07 Resp 15 09/23/24 02:07 BP 147/73 09/23/24 02:07 Pulse Ox 94 L 09/23/24 02:07 FiO2 Intake & Output 03/09/23/24 09/23/24 18:59 06:59 18:59 Intake Total 1740 1800 Output Total 220 60 15 Balance 1520 1740 -15 Intake: IV 600 Intake, IV Titration 1140 Amount Piperacillin-Tazobactam 3 100 .375 gm In Sodium Chloride 0.9% 100 ml @ 25 mls/hr IVPB Q8HR [facility] Rx# :[id number] Sodium Chloride 0.9% 1, 1040 000 ml @ 130 mls/hr IV . Q7H42M [facility] Rx#:[id number] Oral 1800 Output: Drainage 220 60 15 Right Lower Abdomen 220 60 15 Other: Voiding Method Toilet # Voids 2 6 - Exam General appearance: The patient is alert, oriented, appears in no acute d istress. HET: Head is normocephalic and atraumatic. Conjunctiva pink. Sclera anicteric. Neck: Supple without lymphadenopathy. Abdomen: Soft, nontender, nondistended. TAMMY drain right side of abdomen with bilious output. Surgical incisions well-approximated. Extremities: Normal skin color and turgor. No pedal edema Skin: No rashes, no jaundice Neurological: No focal deficits. Alert and oriented. - Labs CBC & Chem 7: 09/22/24 03:25 09/22/24 03:25 Labs: Microbiology - Last 24 Hours (Table) 09/17/24 23:34 Blood Culture - Final Blood Assessment and Plan (1) Postoperative bile leak Narrative/Plan: 68-year-old female presenting with nausea vomiting and diarrhea with elevated LFTs and CT evidence of acute cholecystitis status post robotic subtotal cholecystectomy with TAMMY drain with reported bilious output and concern for bile leak. No hyperbilirubinemia, AST ALT and alkaline phosphatase continue to trend down. No acute right upper quadrant abdominal pain post surgery. Recommendation was for ERCP with stent placement for postoperative bile leak which was attempted yesterday with unsuccessful cannulation of common bile duct of the pancreatic duct despite multiple attempts. Recommendation is transfer to higher level of care for ERCP with common bile duct stent placement. Process is in place for transfer to [facility], waiting a bed. Continue with TAMMY drain. Current Visit: Yes Status: Acute Code(s): K91.89 - OTH POSTPROCEDURAL COMPLICATIONS AND DISORDERS OF DGSTV SYS; K83.8 - OTHER SPECIFIED DISEASES OF BILIARY TRACT SNOMED Code(s): 714140908 (2) Cholecystitis with gangrene of gallbladder Current Visit: Yes Status: Acute Code(s): K82.A1 - GANGRENE OF GALLBLADDER IN CHOLECYSTITIS SNOMED Code(s): 448318219 (3) Hx of cholecystectomy Current Visit: Yes Status: Acute Code(s): Z90.49 - ACQUIRED ABSENCE OF OTHER SPECIFIED PARTS OF DIGESTIVE TRACT SNOMED Code(s): 939019509 Plan: 1. Continue symptomatic and supportive care 2. Continue antibiotics per recommendations from general surgery 3. Continue to monitor TAMMY drain output 4. Diet per general surgery 5. Patient is status post ERCP with unsuccessful cannulation of CBD of recommendation for transfer to higher level of care, recommend transfer to [facility] for ERCP with CBD stent placement. Patient has been accepted waiting on a bed. 6. Rest of medical management per general surgery and primary care team Thank you for this consultation, we will continue to follow. Dr. Rambo Erwin I agree with the dictator's note, documented as a scribe by Joselyn Cano.
--- NOTE | 2024-09-23 12:58 | P.DS ---
Providers Date of admission: 09/17/24 22:50 Expected date of discharge: 09/23/24 Attending physician: Jan Cobb MD Consults: 09/17/24 22:49 Consult Physician Urgent Consulting Provider: Kimberly Mejias Consult Reason/Comments: acute cholecystitis Do you want consulting provider notified?: Already Contacted 09/20/24 09:20 Consult Physician Routine Consulting Provider: Martha Erwin Consult Reason/Comments: ERCP requested Do you want consulting provider notified?: Yes Primary care physician: Everton Biggs [facility] Course: Discharge diagnoses; Right upper quadrant pain Acute gangrenous cholecystitis status post robotic cholecystectomy Postoperative bile leak Transaminitis Leukocytosis Hyponatremia Hypokalemia Hypertension Gastroesophageal reflux disease Hospital course; 68-year-old female, history of hypertension, who presents emergency department with right upper quadrant pain. States that has been going on for the past week. She has had fevers ongoing since Saturday. Also reports to nausea, vomiting and diarrhea. She was seen in her primary care clinic. Laboratory studies were completed. She was told that her white blood cell count was high. They did repeat this test 2 days in a row. White count continue to be high and she was told that she was dehydrated. An ultrasound was ordered however patient was awaiting callback for her study and still has not heard when this test will be performed. She continued to feel nauseated and therefore brought her self into the emergency department. She denies chest pain or difficulty breathing. States that the stools have not been black or bloody. She took a dose of Tylenol this morning at 8 AM. No other alleviating, precipitating modifying factors --Patient scheduled for cholecystectomy this morning 09/20/2024 Patient is seen and evaluated in room at bedside; status post subtotal cholecystectomy for gangrenous cholecystitis Vital signs are reviewed and are stable Lab review shows WBCs of 12.1, hemoglobin of 11.6 and platelet count of 457, sodium 138, potassium 4.3, BUN/creatinine of 5.8/0.8, liver enzymes remain elevated -Patient has been reevaluated by general surgery and recommending GI consult for ERCP 09/21 Patient was seen walking in the hallway. She is with acute gangrenous cholecystitis status post laparoscopic cholecystectomy but it was up total cholecystectomy Her pain in her right upper quadrant is controlled, she is on liquid diet and tolerates that well. However no bowel movement not passing gas Liver enzymes mildly elevated GI consult was placed for possible ERCP. Patient kept on Zosyn 09/22. Patient seen and examined. Blood work done this morning showed WBC 7.5, hemoglobin 0.6, platelet count 498, sodium one 3 mg diazine 3.6, BUN 3, creatinine 0.60, AST 32, ALT of 43, alk phos 187,. GI planning ERCP today 09/23. Patient seen and examined. Patient underwent ERCP with unsuccessful cannulation of CBD, GI recommended transfer to [facility]. [facility] already contacted and accepted the transfer currently waiting on bed availability PHYSICAL EXAMINATION: GENERAL: The patient is alert and oriented x3, not in any acute distress. Well developed, well nourished. HEENT: Pupils are round and equally reacting to light. EOMI. No scleral icterus. No conjunctival pallor. Normocephalic, atraumatic. No pharyngeal erythema. No thyromegaly. CARDIOVASCULAR: S1 and S2 present. No murmurs, rubs, or gallops. PULMONARY: Chest is clear to auscultation, no wheezing or crackles. ABDOMEN: Soft, nontender, surgical incision seen, drain in place MUSCULOSKELETAL: No joint swelling or deformity. EXTREMITIES: No cyanosis, clubbing, or pedal edema. NEUROLOGICAL: Gross neurological examination did not reveal any focal deficits. SKIN: No rashes. Dictation was produced using [employer] dictation software. please excuse any grammatical, word or spelling errors. Patient Condition at Discharge: Stable Plan - Discharge Summary Discharge Rx Participant: No New Discharge Prescriptions: New Hydrocortisone Pr Cream [Proctosol-Hc 2.5%] 1 applic RECTAL BID each Piperacillin-Tazobactam [Zosyn] 3.375 gm IVPB Q8HR each Continue Ascorbic Acid [Vitamin C] 1,000 mg PO DAILY hydroCHLOROthiazide 25 mg PO DAILY Cyanocobalamin (Vitamin B-12) [Vitamin B-12] 1,000 mcg PO DAILY Omeprazole 20 mg PO DAILY Cholecalciferol [Vitamin D3 (25 Mcg = 1000 Iu)] 75 mcg PO DAILY Losartan [Cozaar] 25 mg PO HS Propylene Glycol/Peg 400 [Systane Ultra 0.4-0.3% Eye Drp] 1 - 2 drop BOTH EYES DIRECTED PRN PRN Reason: Dry Eye(S) Discharge Medication List Ascorbic Acid [Vitamin C] 1,000 mg PO DAILY 10/26/22 [History] Cholecalciferol [Vitamin D3 (25 Mcg = 1000 Iu)] 75 mcg PO DAILY 10/26/22 [History] Cyanocobalamin (Vitamin B-12) [Vitamin B-12] 1,000 mcg PO DAILY 10/26/22 [History] Losartan [Cozaar] 25 mg PO HS 10/26/22 [History] Omeprazole 20 mg PO DAILY 10/26/22 [History] hydroCHLOROthiazide 25 mg PO DAILY 10/26/22 [History] Propylene Glycol/Peg 400 [Systane Ultra 0.4-0.3% Eye Drp] 1 - 2 drop BOTH EYES DIRECTED PRN 09/18/24 [History] Hydrocortisone Pr Cream [Proctosol-Hc 2.5%] 1 applic RECTAL BID each 09/22/24 [Rx] Piperacillin-Tazobactam [Zosyn] 3.375 gm IVPB Q8HR each 09/22/24 [Rx] Follow up Appointment(s)/Referral(s): Martha Erwin MD [STAFF PHYSICIAN] - 4 Weeks Everton Biggs DO [Primary Care Provider] - 1-2 days Discharge Disposition: OTHER INSTITUTION NOT DEFINED
--- NOTE | 2024-09-23 13:17 | P.PN ---
Subjective Progress Note Date: 09/23/24 SURGICAL PROGRESS NOTE CHIEF COMPLAINT: Acute cholecystitis HISTORY OF PRESENT ILLNESS: Patient is postop day #4 status post Robotic subtotal cholecystectomy. Patient with bile leak. Patient had attempted ERCP yesterday with GI service. They were unable to cannulate the common bile duct. And recommended transfer to [facility]. Patient reports her pain is controlled. She is tolerating clear liquids. She did have bowel movement and flatus. She does report some discomfort in the right upper quadrant. She did have pain in the left upper quadrant that has now resolved in which she thought it may be gas pains. TAMMY drain 160 mL bilious output through the night and 95 mL output today PHYSICAL EXAM: VITAL SIGNS: Reviewed. GENERAL: Well-developed in no acute distress. ABDOMEN: Soft. Nondistended. Tenderness with palpation right upper quadrant. Incision sites clean dry and intact. TAMMY drain with bilious output. NEUROLOGIC: Alert and oriented. Cranial nerves II through XII grossly intact. ASSESSMENT: 1. Acute cholecystitis with gangrenous gallbladder status post robotic subtotal cholecystectomy 2. Postoperative bile leak. Unsuccessful ERCP. Stent not able to be placed PLAN: -Agree with transfer to [facility] -Awaiting for bed at [facility] -Continue clear liquid diet -Continue to monitor TAMMY drain output -Continue antibiotics -Encourage patient to ambulate -Continue pain management Physician Registered Private Duty Nurse note has been reviewed by physician. Signing provider agrees with the documented findings, assessment, and plan of care. Attestation Patient seen and examined at bedside. No acute events. Drain with 160 cc bilious output overnight. Still awaiting transfer to [facility] for definitive management with ERCP. Case discussed in depth with patient and all questions answered. Continue IV antibiotics. Continue TAMMY drain. Kimberly Mejias DO Objective - Vital Signs Vital signs: Vital Signs Temp 98 F 09/23/24 07:29 Pulse 86 09/23/24 07:29 Resp 17 09/23/24 07:29 BP 146/69 09/23/24 07:29 Pulse Ox 95 09/23/24 07:29 FiO2 Intake & Output 09/22/24 09/23/24 09/23/24 18:59 06:59 18:59 Intake Total 1740 1800 Output Total 220 60 95 Balance 1520 1740 -95 Intake: IV 600 Intake, IV Titration 1140 Amount Piperacillin-Tazobactam 3 100 .375 gm In Sodium Chloride 0.9% 100 ml @ 25 mls/hr IVPB Q8HR [facility] Rx# :[id number] Sodium Chloride 0.9% 1, 1040 000 ml @ 130 mls/hr IV . Q7H42M [facility] Rx#:[id number] Oral 1800 Output: Drainage 220 60 95 Right Lower Abdomen 220 60 95 Other: Voiding Method Toilet # Voids 2 6 - Labs CBC & Chem 7: 09/22/24 03:25 09/22/24 03:25 Labs: Microbiology - Last 24 Hours (Table) 09/17/24 23:34 Blood Culture - Final Blood
[2024-09-24 02:48] VITALS: BP 143/69; PULSE 110; RESP 15; TEMP 99.4
--- NOTE | 2024-09-28 19:30 | CDI ---
Date: 09/28/2024 From: Елена [email or web address] Email: [email or web address] Admit Date: 09/17/2024 10:50:00 PM Patient Name: Dana Bueno Visit Number: [id number] Discharge Date: 09/24/2024 05:59:00 AM ATTENTION: The Clinical Documentation Specialists (CDI) and [facility] Coding Staff appreciate your assistance in clarifying documentation. Please respond to the clarification below the line at the bottom and electronically sign. The CDI & [facility] Coding staff will review the response and follow-up if needed. Please note: Queries are made part of the Legal Health Record. If you have any questions, please contact the author of this message via ITS. Dr. Sid Block, Postoperative bile leak is documented in the Surgery Progress Note on 09/23/2024 and a Robotic Subtotal Cholecystectomy was performed on 09/19/2024. Additional clarification is requested regarding the relationship, if any, that exists between the diagnosis (bile leak) and the surgical procedure. History/Risk Factors: 68-year-old female presented to [facility] ED for evaluation due to right upper quadrant abdominal pain, nausea/vomiting, and diarrhea. PMH: Hypertension, GERD Operative Report (09/19/2024): o Pre-Operative Diagnosis: Acute cholecystitis o Post-Operative Diagnosis: Acute Gangrenous Cholecystitis o Procedure Performed: Robotic Subtotal Cholecystectomy Clinical Indicators: Documentation Location: Electronic Medical Record CT Abdomen & Pelvis (09/17/2024): CT findings are strongly suspicious for severe, acute cholecystitis Operative Report (09/19/2024): Upon inspection, the gallbladder was noted to be gangrenous and necrotic. There was a significant amount of inflammation and some omentum was adhered to the gallbladder. The omentum was taken down with a hook. The gallbladder was positioned and I started dissection. I was able to identify the base of the gallbladder. However when I began dissection, due to the necrosis and inflammation of the gallbladder, I was unable to safely identify the cystic duct and artery entering the gallbladder. I decided at this point, I would perform a fenestrated subtotal cholecystectomy Gastroenterology Progress Note (09/23/2024): Yesterday she underwent ERCP with unsuccessful cannulation of the common bile duct of the pancreatic duct despite multiple attempts. Patient was discussed with general surgeon for recommendation to transfer to [facility] for ERCP and CBD stent placement. Patient has been accepted as a transfer to [facility] however she is awaiting a bed Treatment: Gastroenterology Consultation Attempted ERCP with Stent Placement (Unsuccessful/Procedure Aborted) Transfer to [facility] for Further Care What relationship, if any, exists between the diagnosis of bile leak and the surgical procedure? [ ] Bile leak is an unexpected yet not uncommon outcome and related to the significant inflammation associated with acute gangrenous cholecystitis. The bile leak is clinically significant but is not a complication of the surgical procedure. [ ] Bile leak is clinically significant and is a complication of the surgical procedure [ ] Other please specify ____ [ x ] Unable to determine MTDD
== END 2024-09-24 05:59 | disposition short-term general hospital (02) | DRG 418 ==
LOC: EC 14:38 → 4SSUR 22:49 → OBSVTOIN 22:50 → 4SSUR 23:21
PROVIDERS: ADMIT Internal Medicine; ATTEND Internal Medicine
PROC: 8E0W4CZ Robotic Assisted Procedure of Trunk Region, Percutaneous Endoscopic Approach (ICD-10-PCS; 2024-09-19)
PROC: 0FB44ZZ Excision of Gallbladder, Percutaneous Endoscopic Approach (ICD-10-PCS; principal; 2024-09-19 10:00)
PROC: 0FJB8ZZ Inspection of Hepatobiliary Duct, Via Natural or Artificial Opening Endoscopic (ICD-10-PCS; 2024-09-22)
DX: K81.0 Acute cholecystitis (principal); E87.1 Hypo-osmolality and hyponatremia; K82.A1 Gangrene of gallbladder in cholecystitis; I10 Essential (primary) hypertension; Z11.52 Encounter for screening for COVID-19; K83.8 Other specified diseases of biliary tract; K21.9 Gastro-esophageal reflux disease without esophagitis; E87.6 Hypokalemia; E86.0 Dehydration; Z79.899 Other long term (current) drug therapy; Z90.49 Acquired absence of other specified parts of digestive tract
CPT/HCPCS: 36415; 43260; 74177; 74330; 80048; 80053; 80076; 81003; 83605; 83690; 85025; 85610; 87040; 87324; 87636; 88304; 96360; 96361; 99285

== ENCOUNTER 2024-10-25 10:27 | Emergency (ER) | payer MEDICARE ==
--- NOTE | 2024-10-25 10:42 | ED ---
General Adult HPI - General Chief complaint: Nausea/Vomiting/Diarrhea Stated complaint: diarrhea, low grade fever Time Seen by Provider: 10/25/24 10:32 Source: patient, RN notes reviewed Mode of arrival: ambulatory Limitations: no limitations - History of Present Illness Initial comments: 68-year-old female presents emergency department complaint of dental discomfort, diarrhea. Patient states that she has had several episodes last 24 hours. I have weeks ago just had follow-up with her surgeon which everything was going well. She states she had some complications during surgery in which she had stent placed. Patient states that she said that she has had intermittent loose stools with some food eating but nothing like this last 24 hours. Patient denies any sick contacts patient reports fever. Patient has no dysuria no hematuria no chest pain - Related Data Home Medications Medication Instructions Recorded Confirmed Ascorbic Acid [Vitamin C] 1,000 mg PO DAILY 10/26/22 09/18/24 Cholecalciferol [Vitamin D3 (25 75 mcg PO DAILY 10/26/22 09/18/24 Mcg = 1000 Iu)] Cyanocobalamin (Vitamin B-12) 1,000 mcg PO DAILY 10/26/22 09/18/24 [Vitamin B-12] Losartan [Cozaar] 25 mg PO HS 10/26/22 09/18/24 Omeprazole 20 mg PO DAILY 10/26/22 09/18/24 hydroCHLOROthiazide 25 mg PO DAILY 10/26/22 09/18/24 Propylene Glycol/Peg 400 [Systane 1 - 2 drop BOTH EYES DIRECTED 09/18/24 09/18/24 Ultra 0.4-0.3% Eye Drp] PRN Previous Rx's Medication Instructions Recorded Hydrocortisone Pr Cream 1 applic RECTAL BID each 09/22/24 [Proctosol-Hc 2.5%] Piperacillin-Tazobactam [Zosyn] 3.375 gm IVPB Q8HR each 09/22/24 Allergies Allergy/AdvReac Type Severity Reaction Status Date / Time nitrofurantoin AdvReac flu Verified 10/25/24 10:30 [From Macrobid] symptoms Review of Systems ROS Statement: Those systems with pertinent positive or pertinent negative responses have been documented in the HPI. ROS Other: All systems not noted in ROS Statement are negative. Past Medical History Past Medical History: Hypertension History of Any Multi-Drug Resistant Organisms: None Reported Past Surgical History: Orthopedic Surgery Past Psychological History: No Psychological Hx Reported Smoking Status: Never smoker Past Alcohol Use History: Daily Past Drug Use History: None Reported General Exam Limitations: no limitations General appearance: alert, in no apparent distress Head exam: Present: atraumatic, normocephalic, normal inspection Eye exam: Present: normal appearance, PERRL, EOMI. Absent: scleral icterus, conjunctival injection, periorbital swelling ENT exam: Present: normal exam, normal oropharynx, mucous membranes moist Neck exam: Present: normal inspection. Absent: tenderness, meningismus, lymphadenopathy Respiratory exam: Present: normal lung sounds bilaterally. Absent: respiratory distress, wheezes, rales, rhonchi, stridor Cardiovascular Exam: Present: regular rate, normal rhythm, normal heart sounds. Absent: systolic murmur, diastolic murmur, rubs, gallop, clicks GI/Abdominal exam: Present: soft, normal bowel sounds. Absent: distended, tenderness, guarding, rebound, rigid Course Vital Signs 10/25/24 10:28 Temperature 98.3 F Pulse Rate 101 H Respiratory 18 Rate Blood Pressure 148/82 O2 Sat by Pulse 100 Oximetry Medical Decision Making - Medical Decision Making Was pt. sent in by a medical professional or institution (, PA, [employer], urgent care, hospital, or [place] [facility] [place] facility...) When possible be specific @ -No Did you speak to anyone other than the patient for history (EMS, parent, family, police, friend...)? What history was obtained from this source @ -No Did you review nursing and triage notes (agree or disagree)? Why? @ -I reviewed and agree with nursing and triage notes Were old charts reviewed (outside hosp., previous admission, EMS record, old EKG, old radiological studies, urgent care reports/EKG's, [place] health care facility records)? Report findings @ -Reviewed recent inpatient records including surgical records and stent placement Differential Diagnosis (chest pain, altered mental status, abdominal pain women, abdominal pain men, vaginal bleeding, weakness, fever, dyspnea, syncope, headache, dizziness, GI bleed, back pain, seizure, CVA, palpatations, mental health, musculoskeletal)? @ -Differential Abdominal Pain Women: Appendicitis, Cholecystitis, diverticulosis, ischemic bowel, pancreatitis, hepatitis, UTI, gastroenteritis, AAA, incarcerated hernia, bowel obstruction, constipation, inflammatory bowel, hepatitis, peptic ulcer disease, splenic infarction, perforated viscus, vulvitis, ovarian torsion, PID, kidney stone, placenta abruption, this is not meant to be an all-inclusive list EKG interpreted by me (3pts min.). @ -None X-rays interpreted by me (1pt min.). @ -None done CT interpreted by me (1pt min.). @ -CT abdomen pelvis showing evidence of stable stent, no other acute process. U/S interpreted by me (1pt. min.). @ -None done What testing was considered but not performed or refused? (CT, X-rays, U/S, labs)? Why? @ -None What meds were considered but not given or refused? Why? @ -None Did you discuss the management of the patient with other professionals (professionals i.e. , PA, [employer], lab, RT, psych nurse, social services coordinator, rating examiner, teacher, conservation officer, patient case coordinator)? Give summary @ -No Was smoking cessation discussed for >3mins.? @ -No Was critical care preformed (if so, how long)? @ -No Were there social determinants of health that impacted care today? How? (Homelessness, low income, unemployed, alcoholism, drug addiction, transp ortation, low edu. Level, literacy, decrease access to med. care, prison, rehab)? @ -No Was there de-escalation of care discussed even if they declined (Discuss DNR or withdrawal of care, Hospice)? DNR status @ -No What co-morbidities impacted this encounter? (DM, HTN, Smoking, COPD, CAD, Cancer, CVA, ARF, Chemo, Hep., AIDS, mental health diagnosis, sleep apnea, morbid obesity)? @ -None Was patient admitted / discharged? Hospital course, mention meds given and route, prescriptions, significant lab abnormalities, going to OR and other pertinent info. @ -Discharge patient laboratory studies reviewed shows mild hypokalemia, otherwise essentially unremarkable laboratory studies negative viral panel negative CT. Patient discharged in stable condition. Undiagnosed new problem with uncertain prognosis? @ -No Drug Therapy requiring intensive monitoring for toxicity (Heparin, Nitro, Insulin, Cardizem)? @ -No Were any procedures done? @ -No Diagnosis/symptom? @ -Diarrhea Acute, or Chronic, or Acute on Chronic? @ -Acute Uncomplicated (without systemic symptoms) or Complicated (systemic symptoms)? @ -Complicated Side effects of treatment? @ -No Exacerbation, Progression, or Severe Exacerbation? @ -No Poses a threat to life or bodily function? How? (Chest pain, [place], [place], pneumonia, PE, COPD, DKA, ARF, appy, cholecystitis, CVA, Diverticulitis, Homicidal, Suicidal, threat to staff... and all critical care pts) @ -No - Lab Data Result diagrams: 10/25/24 11:02 10/25/24 11:02 Lab Results 10/25/24 10/25/24 10/25/24 Range/Units 11:02 11:02 11:02 WBC 14.38 H (4.50-10.00) 10*3/uL RBC 4.52 (4.10-5.20) 10*6/uL Hgb 14.3 (12.0-15.0) g/dL Hct 41.3 (37.2-46.3) % MCV 91.4 (80.0-97.0) fL MCH 31.6 (27.0-32.0) pg MCHC 34.6 (32.0-37.0) g/dL Plt Count 281 (140-440) 10*3/uL MPV 9.0 L (9.5-12.2) fL Immature Gran % (Auto) 0.3 % Neutrophils % 81.7 % Lymphocytes % 12.2 % Monocytes % 5.4 % Eosinophils % 0.1 % Basophils % 0.3 % Immature Gran # 0.04 (0.00-0.04) 10*3/uL Neutrophils # 11.75 H (1.80-7.70) 10*3/uL Lymphocytes # 1.75 (0.90-5.00) 10*3/uL Monocytes # 0.78 (0.20-1.00) 10*3/uL Eosinophils # 0.02 L (0.04-0.35) 10*3/uL Basophils # 0.04 (0.00-0.10) 10*3/uL Sodium 133 L (137-145) mmol/L Potassium 3.2 L (3.5-5.1) mmol/L Chloride 96 L (98-107) mmol/L Carbon Dioxide 22 (22-30) mmol/L Anion Gap 15 mmol/L BUN 17 (7-17) mg/dL Creatinine 0.51 L (0.52-1.04) mg/dL Est GFR (CKD-EPI)AfAm >90 (>60 ml/min/1.73 sqM) Est GFR (CKD-EPI)NonAf >90 (>60 ml/min/1.73 sqM) Glucose 144 H (74-99) mg/dL Calcium 9.5 (8.4-10.2) mg/dL Total Bilirubin 1.1 (0.2-1.3) mg/dL AST 30 (14-36) U/L ALT 27 (4-34) U/L Alkaline Phosphatase 126 (38-126) U/L Total Protein 7.8 (6.3-8.2) g/dL Albumin 4.6 (3.5-5.0) g/dL Lipase 74 (23-300) U/L Urine Color Urine Appearance (Clear) Urine pH (5.0-8.0) Ur Specific Forbes (1.001-1.035) Urine Protein (Negative) Urine Glucose (UA) (Negative) Urine Ketones (Negative) Urine Blood (Negative) Urine Nitrite (Negative) Urine Bilirubin (Negative) Urine Urobilinogen (<2.0) mg/dL Ur Leukocyte Esterase (Negative) Influenza Type A (PCR) Not Detected (Not Detectd) Influenza Type B (PCR) Not Detected (Not Detectd) RSV (PCR) Not Detected (Not Detectd) SARS-CoV-2 (PCR) Not Detected (Not Detectd) 10/25/24 Range/Units 12:14 WBC (4.50-10.00) 10*3/uL RBC (4.10-5.20) 10*6/uL Hgb (12.0-15.0) g/dL Hct (37.2-46.3) % MCV (80.0-97.0) fL MCH (27.0-32.0) pg MCHC (32.0-37.0) g/dL Plt Count (140-440) 10*3/uL MPV (9.5-12.2) fL Immature Gran % (Auto) % Neutrophils % % Lymphocytes % % Monocytes % % Eosinophils % % Basophils % % Immature Gran # (0.00-0.04) 10*3/uL Neutrophils # (1.80-7.70) 10*3/uL Lymphocytes # (0.90-5.00) 10*3/uL Monocytes # (0.20-1.00) 10*3/uL Eosinophils # (0.04-0.35) 10*3/uL Basophils # (0.00-0.10) 10*3/uL Sodium (137-145) mmol/L Potassium (3.5-5.1) mmol/L Chloride (98-107) mmol/L Carbon Dioxide (22-30) mmol/L Anion Gap mmol/L BUN (7-17) mg/dL Creatinine (0.52-1.04) mg/dL Est GFR (CKD-EPI)AfAm (>60 ml/min/1.73 sqM) Est GFR (CKD-EPI)NonAf (>60 ml/min/1.73 sqM) Glucose (74-99) mg/dL Calcium (8.4-10.2) mg/dL Total Bilirubin (0.2-1.3) mg/dL AST (14-36) U/L ALT (4-34) U/L Alkaline Phosphatase (38-126) U/L Total Protein (6.3-8.2) g/dL Albumin (3.5-5.0) g/dL Lipase (23-300) U/L Urine Color Light Yellow Urine Appearance Clear (Clear) Urine pH 6.0 (5.0-8.0) Ur Specific Forbes 1.011 (1.001-1.035) Urine Protein Negative (Negative) Urine Glucose (UA) Negative (Negative) Urine Ketones Trace H (Negative) Urine Blood Negative (Negative) Urine Nitrite Negative (Negative) Urine Bilirubin Negative (Negative) Urine Urobilinogen <2.0 (<2.0) mg/dL Ur Leukocyte Esterase Negative (Negative) Influenza Type A (PCR) (Not Detectd) Influenza Type B (PCR) (Not Detectd) RSV (PCR) (Not Detectd) SARS-CoV-2 (PCR) (Not Detectd) Disposition Clinical Impression: Diarrhea, Hypokalemia Disposition: HOME SELF-CARE Condition: Stable Instructions (If sedation given, give patient instructions): Acute Diarrhea (ED) Additional Instructions: Please return to the Emergency Department if symptoms worsen or any other concerns. Is patient prescribed a controlled substance at d/c from ED?: No Referrals: Everton Biggs DO [Primary Care Provider] - 1-2 days Time of Disposition: 12:52
[2024-10-25] MEDS: SODIUM CHLORIDE 0.9% 1,000 ML IV ONE (11:08)
[2024-10-25 11:14] LABS: Basophils # (A) 0.04 10*3/uL (0.00-0.10); Basophils % (A) 0.3 %; Eosinophils # (A) 0.02 10*3/uL (0.04-0.35); Eosinophils % (A) 0.1 %; HCT 41.3 % (37.2-46.3); HGB 14.3 g/dL (12.0-15.0); Lymphocytes # (A) 1.75 10*3/uL (0.90-5.00); Lymphocytes % (A) 12.2 %; MCH 31.6 pg (27.0-32.0); MCHC 34.6 g/dL (32.0-37.0); MCV 91.4 fL (80.0-97.0); Monocytes # (A) 0.78 10*3/uL (0.20-1.00); Monocytes % (A) 5.4 %; Neutrophils # (A) 11.75 10*3/uL (1.80-7.70); Neutrophils % (A) 81.7 %; Platelet Count 281 10*3/uL (140-440); RBC 4.52 10*6/uL (4.10-5.20); RDW 12.7 % (11.5-14.5); WBC 14.38 10*3/uL (4.50-10.00)
[2024-10-25 11:26] LABS: ALT 27 U/L (4-34); AST 30 U/L (14-36); African American GFR (CKD) >90 (>60 ml/min/1.73 sqM); Albumin 4.6 g/dL (3.5-5.0); Alkaline Phosphatase 126 U/L (38-126); Anion Gap 15 mmol/L; Blood Urea Nitrogen 17 mg/dL (7-17); Calcium 9.5 mg/dL (8.4-10.2); Carbon Dioxide 22 mmol/L (22-30); Chloride 96 mmol/L (98-107); Glucose 144 mg/dL (74-99); Lipase 74 U/L (23-300); Non-African American GFR(CKD) >90 (>60 ml/min/1.73 sqM); Potassium 3.2 mmol/L (3.5-5.1); Sodium 133 mmol/L (137-145); Total Bilirubin 1.1 mg/dL (0.2-1.3); Total Protein 7.8 g/dL (6.3-8.2)
[2024-10-25 11:53] LABS: Influenza A Not Detected (Not Detectd); Influenza B Not Detected (Not Detectd); RSV Not Detected (Not Detectd)
--- NOTE | 2024-10-25 12:11 | CT ---
EXAMINATION TYPE: CT abdomen pelvis w con DATE OF EXAM: 10/25/2024 COMPARISON: 09/17/2024 CLINICAL INDICATION: Female, 68 years old with history of abdominal pain; PHH, Abdominal pain, chroni c diarrhea, recent yazmin TECHNIQUE: Performed without Oral Contrast and with IV Contrast, patient injected with 100 ml mL of Isovue 300. CT DLP: 1115.[address] CTDI: mGy Automated exposure control for dose reduction was used. FINDINGS: The lung bases are clear. There is surgical absence of the gallbladder. There is a stent in the common bile duct which appears patent. There is mild air within the stent and biliary tree of the left lobe of the liver. There is no focal mass or organomegaly involving the liver, pancreas, spleen or adrenal glands. There is no solid renal mass or hydronephrosis and there is homogeneous contrast enhancement of the r enal parenchyma. The caliber the abdominal aorta is normal is no retroperitoneal adenopathy or hemorr kalina. The bowel loops are normal in caliber and there is no evidence of dilatation or obstruction. No infla mmatory changes are identified in the bowel wall or mesentery. There is no free intraperitoneal air or fluid. No pelvic mass, free fluid, abscess or adenopathy. The osseous structures and soft tissues are intact. IMPRESSION: 1. Patent bile duct stent. 2. Cholecystectomy. 3. No acute changes within the abdomen or pelvis. [facility], , 10/25/2024 12:09 PM
[2024-10-25 12:40] LABS: Appearance,Urine Clear (Clear); Bilirubin,Urine Negative (Negative); Blood,Urine Negative (Negative); Color,Urine Light Yellow; Glucose,Urine (UA) Negative (Negative); Ketones,Urine Trace (Negative); Leukocyte Esterase,Urine Negative (Negative); Nitrite,Urine Negative (Negative); Protein,Urine Negative (Negative); Specific Gravity,Urine 1.011 (1.001-1.035); Urobilinogen,Urine <2.0 mg/dL (<2.0)
[2024-10-25] MEDS: POTASSIUM CHLORIDE ER 20 MEQ TAB.ER PO STA (12:58)
[2024-10-25] MEDS: DIPHENOX-ATROP STARTER PACK 8 TAB BTL PO STA (12:58)
[2024-10-25 13:01] VITALS: BP 129/71; PULSE 83; RESP 16; TEMP 98.2
== END 2024-10-25 13:11 | disposition home or self-care (01) ==
LOC: EC 10:27
DX: E87.6 Hypokalemia (principal); R19.7 Diarrhea, unspecified; Z88.1 Allergy status to other antibiotic agents
CPT/HCPCS: 36415; 80053; 83690; 85025; 81003; 87636; 74177; 99284; 96360; 96361; Q9967

== ENCOUNTER → 2025-01-21 | Outpatient (CLI) | payer MEDICARE ==
--- NOTE | 2025-01-21 11:59 | MM ---
Reason for Exam: Screening (asymptomatic). Last mammogram was performed 1 year(s) and 1 month(s) ago. Patient History: Menarche at age 12. First Full-Term at age 17. Postmenopausal. Risk Values: Maci 5 year model risk: 1.2%. NCI Lifetime model risk: 3.7%. Prior Study Comparison: 07/24/2021 Bilateral Screening Mammogram, [facility]. 10/03/2022 Bilateral MG 3D screening mammo w/cad, [facility]. 12/30/2023 Bilateral MG 3D screening mammo w/cad, [facility]. Tissue Density: There are scattered areas of fibroglandular density. Findings: Analyzed By CAD. There is no suspicious group of microcalcifications or new suspicious mass in either breast. Overall Assessment: Benign, BI-RAD 2 Management: Screening Mammogram of both breasts in 1 year. . Patient should continue monthly self-breast exams. A clinical breast exam by your physician is recommended on an annual basis. This exam should not preclude additional follow-up of suspicious palpable abnormalities. Note on Maci scores and lifetime risk: 1. A Maci score greater than 3% is considered moderate risk. If this is the case, consider specialist referral to assess eligibility for a risk reducing agent. 2. If overall lifetime risk for the development of breast cancer is 20% or higher, the patient may qualify for future screening with alternating mammogram and breast MRI. [facility], , 01/21/2025 11:55 AM. Electronically signed and approved by: Bigg Otero M.D. [facility]
== END | disposition home or self-care (01) ==
LOC: RADMAMWWP 11:26
PROVIDERS: ATTEND Family Medicine
DX: Z12.31 Encounter for screening mammogram for malignant neoplasm of breast (principal); R92.323 Mammographic fibroglandular density, bilateral breasts; Z78.0 Asymptomatic menopausal state
CPT/HCPCS: 77063; 77067